=== PATIENT | male | born 1945 | race Caucasian/White ===

== ENCOUNTER 2022-02-12 09:45 | Outpatient (CLI) | payer OTHER, SELFPAY ==
--- NOTE | 2022-02-12 10:30 | CRLHL7_ITS ---
For Patients: As a result of the Cures Act, medical imaging exams and procedure reports are released immediately into your electronic medical record. You may view this report before your referring provider. If you have questions, please contact your health care provider. Dictation for this exam included within the brain MRI report from the same date. Dictated by Manuel Branch MD @ 02/12/2022 12:40:22 PM (Electronically Signed)
--- NOTE | 2022-02-12 10:30 | CRLHL7_ITS ---
For Patients: As a result of the Cures Act, medical imaging exams and procedure reports are released immediately into your electronic medical record. You may view this report before your referring provider. If you have questions, please contact your health care provider. Dictation for this exam included within the brain MRI report from the same date. Dictated by Manuel Branch MD @ 02/12/2022 12:40:47 PM (Electronically Signed)
--- NOTE | 2022-02-12 10:30 | CRLHL7_ITS ---
For Patients: As a result of the 21st Century Cures Act, medical imaging exams and procedure reports are released immediately into your electronic medical record. You may view this report before your referring provider. If you have questions, please contact your health care provider. INDICATION: Right-sided retinal hemorrhage. TECHNIQUE: Brain MRI with contrast. The following sequences were obtained: Sagittal T1 weighted sequence. DWI and ADC mapping sequences. Axial FLAIR, GRE T2* and KATERYNA T2 weighted sequences. Axial/coronal T1 weighted post-contrast sequences. Magnetic Resonance Angiography of the head and neck with and without contrast. The following sequences were obtained: 3D Time of Flight MRA sequence of the intracranial circulation. 3D Time of Flight and gadolinium bolus MRA sequences the neck with all measurements are based on NASCET criteria. Maximum Intensity Reconstructions are provided. 20 cc of Dotarem gadolinium based contrast agent was used. COMPARISON: None. 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 Significant associated susceptibility artifact from the aneurysm clip. There is right basifrontal encephalomalacia and gliosis, reflecting any combination of postoperative change and chronic infarct. No acute infarction. No mass or pathologic intracranial enhancement. Scattered FLAIR hyperintensities within the supratentorial white matter, typical for chronic microvascular ischemic change. No hydrocephalus or extra-axial collections. Partially empty sella. Parasellar structures and optic chiasm are normal. Posterior fossa is normal. Bilateral pseudophakia. No other orbital abnormalities. No calvarial or skull base marrow signal abnormality. No obstructive sinus disease. No extracranial soft tissue findings. MRA Head: Limited assessment for aneurysm recurrence in the anterior cerebral artery region given the amount of susceptibility artifact. Allowing for this, no visible recurrent aneurysm is identified. No proximal large vessel occlusion. The anterior cerebral arteries are patent. The middle cerebral arteries are patent. The posterior cerebral arteries are patent. The intradural vertebral arteries and basilar artery are patent. The intracranial internal carotid arteries are patent. No aneurysms elsewhere. MRA Neck: There is a 3 vessel configuration of the aortic arch. The brachiocephalic artery is patent. The proximal subclavian arteries are patent. The common carotid arteries are patent. The internal carotid arteries are patent. The cervical vertebral arteries are patent. No abnormal dilatation of the major cervical arteries. IMPRESSION: MRI Head: 1. No acute infarction or other acute intracranial pathology. 2. No mass or pathologic intracranial enhancement. 3. Bilateral pseudophakia. No other orbital abnormalities. 4. Postsurgical changes of right frontal craniotomy for aneurysm clipping with associated right anterior inferior frontal encephalomalacia/gliosis, reflecting any combination of postoperative change and chronic infarct. 5. Scattered chronic microvascular ischemic changes within the supratentorial white matter. MRA Head: 1. Limit assessment for recurrent anterior cerebral artery region aneurysm given the amount of susceptibility artifact. Allowing for this, no recurrent aneurysm is identified. No aneurysms elsewhere. 2. No proximal large vessel occlusion or flow-limiting stenosis involving the major intracranial arteries. MRA Neck: 1. No flow-limiting stenosis involving the major cervical arteries. No evidence of dissection. Dictated by Manuel Branch MD @ 02/12/2022 12:40:01 PM (Electronically Signed)
== END 2022-02-12 09:46 | disposition home or self-care (01) ==
LOC: MRI 09:46
PROVIDERS: PCP Family Medicine; Visit Provider Family Medicine
DX: H35.61 Retinal hemorrhage, right eye (principal); Z96.1 Presence of intraocular lens
CPT/HCPCS: 70544; 70549; 70553; A9575

== ENCOUNTER 2022-05-11 10:04 | Outpatient (CLI) | payer OTHER, SELFPAY ==
--- OUTSIDE RECORDS SUMMARY | 2022-05-11 10:08 | XMS_ITS | Encounter Summary ---
:1945 Author Care Team Providers Name Role Phone Edmund Gar MD Primary Care Provider [phone] Reason for Visit None recorded. Assessment and Plan 1. Lower urinary tract symptoms due to benign prostatic hypertrophy - Status post UroLift in [place] in 2016. Prostate measures about 80 to 90 g on my exam and has residual lateral lobe hyperplasia with a small median lobe. - Discussed TURP, medical mgmt - Continue tamsulosin - Will start finasteride 5 mg daily; dis cussed common side effects ? finasteride 5 mg tablet 2. Blood in urine - Cystoscopy today demonstrates a large , friable and hypervascular prostate that is probably the source of his intermittent hematuria. Otherwise unremarkable exam. He has had 2 [address] scans including a PET scan and 2020 that were negative for any stones or renal masses. 3. Overactive bladder - Symptoms consistent with overactive b ladder in the setting of type 2 diabetes 4. Nocturia - Voiding diary shows nocturnal polyuri a. I recommended that he continue with p.m. fluid restriction and compression socks during the day. I recommended he discuss with primary care physician starting Lasix in the midday to hopefully help with diuresis during the afternoon, rather than at nig httime. If he fails this, may need to consider formal sleep study to evaluate for sleep apnea. Discussion Note: None recorded.Patient educational handouts: No information available. Plan of Care Reminders Provider Appointments Return to Office on or around 03/23/2023 Tam Maria MD Lab None recorded. ? ? Referral None recorded. ? ? Procedures None recorded. ? ? Surgeries None recorded. ? ? Imaging None recorded. ? ? Medications Name Start Date ? ? amlodipine 5 mg tablet ? TAKE 1 TABLET BY MOUTH EVERY DAY atorvastatin 20 mg tablet ? TAKE 1 TABLET BY MOUTH EVERY EVENING. chlorthalidone 25 mg tablet ? TAKE 1 TABLET BY MOUTH EVERY DAY chlorthalidone 50 mg tablet ? TAKE 1 TABLET BY MOUTH EVERY DAY cholecalciferol (vitamin D3) ? ferrous sulfate ? finasteride 5 mg tablet ? TAKE 1 TABLET BY MOUTH EVERY DAY gabapentin 300 mg capsule ? TAKE 1 CAPSULE BY MOUTH TWICE A DAY glimepiride 2 mg tablet ? TAKE 1 TABLET BY MOUTH EVERY DAY metformin ER 500 mg tablet,extended release 24 hr ? TAKE 2 TABLETS BY MOUTH TWICE DAILY. tamsulosin 0.4 mg capsule ? TAKE 1 CAPSULE BY MOUTH EVERY DAY valsartan 320 mg tablet ? TAKE 1 TABLET BY MOUTH DAILY. Vitamin B12 ? Medications Administered None recorded. Vitals None recorded. Results Lab Results None recorded. Allergies Code Code System Name Reaction Severity Onset NKDA ? ? ? Problems None recorded. Procedures Date Name Performed by ? ? Cataract Surgery Information not avai lable ? Procedure on Knee Information not avai lable ? Prostate Surgery Information not avai lable ? Cholecystectomy Information not avai lable ? Procedure on Spine Information not avai lable Vaccine List None recorded. Social History Tobacco Smoking Status Never Smoker What was the date of your most recent tobacco screening? Family History Relation Problem Onset Age of Age Notes Father Squamous cell carcinoma (No Information) N/A (No Notes) Father Family history of cardiac (No Information) N/A (No Notes) disorder Functional Status Unknown. Past Encounters 03/23/2022 Lower Urinary Tract Symptoms Due to Javy gn Prostatic Hypertrophy; Blood in Urine; Overactive Bladder; Nocturia Chace Maria MD: [address] [facility], [address] [phone], Ph. 03/11/2022 Urinary Tract Infectious Disease; Lower Urinary Tract Symptoms Due to Benign Prostatic Hypertrophy; Blood in Urine; Overactive Bladder; Nocturia Chace Maria MD: [address] [facility], [address] [address], Ph. 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 He has a history of well-controlled [id number] type 2 diabetes, using metformin and glimepiride. He saw a urologist in [place] in 2017, but I do not have the records. He underwent UroLift procedure with the indication of nocturia and did not see improvement. He denies long-term issues with weak stream but does have some difficulty emptying his bladder at nighttime. His force of stream is good at this time. He voids about every 2-3 hours during the day and has nocturia x5. He wakes up because of a sense of urgency or full kimberley dder. He is also had episodes of gross hematuria and dysuria over the past 2 years. He had 1 culturein November 2020 reviewed from outside records that showed low colony count of staph. He had another culture in December 2021 that was negative, but did improve with Keflex (reviewed recent emergency room notesfrom 12/26/2021 with MINOO Means). I reviewed outside CT reports including a PET scan from 03/27/[address] abdomen and pelvis with contrast from 11/24/2020 that were negative for any upper tract abnormalities or stones. His most recent PSA was 2.56 on 12/06/2020. Urinalysis today is totally negative. Postvoid residual 35 mL. AUA symptom score 18, bother 5.</div><div>
</div><div>03/23/22: He follows up today to review his voiding diary, which shows typical nighttime voided volumes of 30 to 40 ounces with daytime volumes of 46 to 63 ounces. Nocturia x3- 4. Cystoscopy last visit showed lateral lobe hyperplasia with volcano-like protrusion into the bladder with a small median lobe. Prostate was hypervascular and easily bled with instrumentation. Currently he practices p.m. fluid restriction and wears compression socks during the day, which he takes off at nighttime.</div> Review of Systems None recorded. Physical Exam ? Notes: <div>General: No acute distr ess, well developed/well nourished
Resp: respirations non labored, no audible wheeze
MSK: no gross deformities
Neuro: moving all extremities, grossly non focal
Psych: normal mood and affect, no c onfusion that recommended ED for</div>
--- OUTSIDE RECORDS SUMMARY | 2022-05-11 10:08 | XMS_ITS | Encounter Summary ---
:1945 Author Organization [facility] Address [address] [place] [address] Care Team Providers Name Role Phone Edmund Gar MD Primary Care Provider Reason for Visit Reason Comments Hematuria Dysuria Encounter Details Date Type Department Care Team Description 12/26/2021 Emergency [facility] [place] with hematuria, site [address] [facility]. [address] [place] [address] [id number] Social History Tobacco Use Types Packs/Day Years Used Date Smoking Tobacco: Never Assessed Sex Assigned at Date Recorded Not on file documented as of this encounter Last Filed Vital Signs Vital Sign Reading Time Taken Comments Blood Pressure 157/82 12/26/2021 8:05 PM CDT Pulse 84 12/26/2021 8:05 PM CDT Temperature 36.6 ??C (97.8 ??F) 12/26/2021 8:05 PM CDT Respiratory Rate 16 12/26/2021 8:05 PM CDT Oxygen Saturation 98% 12/26/2021 8:05 PM CDT Inhaled Oxygen Concentration - - Weight - - Height - - Body Mass Index - - documented in this encounter Discharge Instructions Discharge InstructionsStKaris smith PA-C - 12/26/2021 10:03 PM CDT Discharge Instructions Urinary Tract Infection You or your child have been diagnosed with a urinary tract infection, or UTI. The urinary tract includes the kidneys (which make urine/pee), ureters (the tubes that carry urine/pee from the kidneys to the bladder), the bladder (which stores urine/pee), and urethra (the tube that carries urine/pee out of the bladder). Urinary tract infections occur when bacteria travel up the urethra into the bladder (bladder infection) and, in some cases, from there into the kidneys (kidney infection). Generally, every Emergency Department visit should have a follow-up clinic visit with either a primary or a specialty clinic/provider. Please follow-up as instructed by your emergency provider today. Return to the Emergency Department if: You or your child have severe back pain. You or your child are vomiting (throwing up) so that you cannot take your medicine. You or your child have a new fever (had not previously had a fever) over 101??F. You or your child have confusion or are very weak, or feel very ill. Your child seems much more ill, will not wake up, will not respond right, or is crying for a long time and will not calm down. You or your child are showing signs of dehydration. These signs may include decreased urination (pee), dry mouth/gums/tongue, or decreased activity. Follow-up with your provider: Children under 24 months need to be seen by their regular provider within one week after a diagnosisof a UTI. It may be necessary to do some more tests to look at the child???s kidney or bladder. You should begin to feel better within 24 - 48 hours of starting your antibiotic; follow-up with your regular clinic/doctor/provider if this is not the case. Treatment: You will be treated with an antibiotic to kill the bacteria. We have to make an educated guess, based on what we know about common bacteria and antibiotics, as to which antibiotic will work for your infection. We will be correct most times but there will be some cases where the antibiotic chosen is not correct (see urine cultures below). Take a pain medication such as acetaminophen (Tylenol??) or ibuprofen (Advil??, Motrin??, Nuprin??). Phenazopyridine (Pyridium??, Uristat??) is a prescription medication that numbs the bladder to reduce the burning pain of some UTIs. The same medication is available in a non-prescription version (Azo-Standard??, Urodol??). This medication will change the color of the urine and tears (usually blue or o range). If you wear contacts, do not wear them while taking this medication as they may be stained by the medication. Urine Cultures: If indicated, a urine culture may have been performed today. This test generally takes 24-48 hours to complete so the results are not known at this time. The results can confirm that an infection is present but also determine which antibiotic is effective for the specific bacteria that is causing the infection. If your urine culture shows that the antibiotic you were given today will not work to treat your infection, we will attempt to contact you to make arrangements to change the antibiotic. If the culture confirms that the antibiotic is effective for your infection, you will not be contacted. Weoften recommend follow-up with your regular physician/provider on the culture results regardless of this process. Antibiotic Warning: If you have been placed on antibiotics - watch for signs of allergic reaction. These include rash, lip swelling, difficulty breathing, wheezing, and dizziness. If you develop any of these symptoms, stop the antibiotic immediately and go to an emergency room or urgent care for evaluation. Probiotics: If you have been given an antibiotic, you may want to also take a probiotic pill or eat yogurt with live cultures. Probiotics have good bacteria to help your intestines stay healthy. Studies have shown that probiotics help prevent diarrhea and other intestine problems (including C. diff infection) when you take antibiotics. You can buy these without a prescription in the pharmacy section of the store. If you were given a prescription for medicine here today, be sure to read all of the information (including the package insert) that comes with your prescription. This will include important information about the medicine, its side effects, and any warnings that you need to know about. The pharmacist who fills the prescription can provide more information and answer questions you may have about the medicine. If you have questions or concerns that the pharmacist cannot address, please call or return to the Emergency Department. Remember that you can always come back to the Emergency Department if you are not able to see your regular provider in the amount of time listed above, if you get any new symptoms, or if there is anything that worries you. documented in this encounter Medications at Time of Discharge Medication Sig Dispensed Refills Start Date End Date cephalexin (KEFLEX) 500 Take 1 Capsule (500 14 Capsule 0 01/02/2022 MG capsule mg) by mouth two times a day for 7 days. documented as of this encounter ED Notes Carol Ann Rubalcava RN - 12/26/2021 10:28 PM CDT This patient was assessed and discharged by the provider Karis Collier PA-C - 12/26/2021 9:41 PM CDT Chief Complaint: Urinary symptoms HPI: Andrea Gibson is a 76 y.o. male with a history of type II diabetes, hyperlipidemia, and hypertension who presents to the ED for evaluation of urinary symptoms. The patient reports onset of dysuria, hematuria with blood clots, and urinary frequency at 18:00 tonight. He denies any nausea, vomiting, diarrhea, abdominal pain, fevers, congestion, cough, sore throat, chest pain, shortness of breath, or new back pain. Patient had a UTI approximately one year ago that felt similar. No concern for STI. He usually receives care in [place], but is in town due to visiting his family. Review of Systems Constitutional: Negative for fever. HENT: Negative for congestion and sore throat. Respiratory: Negative for cough and shortness of breath. Cardiovascular: Negative for chest pain. Gastrointestinal: Negative for abdominal pain, diarrhea, nausea and vomiting. Genitourinary: Positive for dysuria, frequency and hematuria. Musculoskeletal: Negative for back pain (new). Skin: Negative for rash. All other systems reviewed and are negative. Allergies: No known medication allergies. Medications: Patient takes medications for his hypertension, hyperlipidemia, and T2DM however it is unsure which medications. Medical History: Patient reported Hypertension Hyperlipidemia Type II diabetes UTI Surgical History: Unable to obtain surgical history due to difficulties with Care Everywhere. Social History: The patient presents to the ED independently. He was in the [employer]. Vital Signs: Triage Vitals [12/26/212004] Temp 36.6 ??C (97.8 ??F) Temp src Oral Pulse 84 Resp 16 BP (!) 157/82 SpO2 98 % Physical Exam Constitutional: Pleasant. Cooperative. Eyes: Pupils equally round and reactive. HENT: Head is normal in appearance. Oropharynx is normal with moist mucus membranes. Cardiovascular: Regular rate and rhythm. Respiratory: Normal respiratory effort, lungs are clear bilaterally. GI: Abdomen is soft, non-tender, non-distended. No guarding, rebound, or rigidity. : No CVA tenderness to percussion. Skin: Normal, without rash. Neurologic: Cranial nerves grossly intact, normal cognition, no focal deficits. Alert and oriented x3. Psychiatric: Normal affect. Nursing notes and vital signs reviewed. Laboratory: Results for orders placed or performed during the hospital encounter of 12/26/21 UA Conditional UC: Clean Catch Specimen: Clean Catch; Urine Result Value Ref Range Urine Culture Comment Urinalysis results meet criteria for reflex, culture performed. Urine Color Yellow Straw-Yellow Urine Clarity Cloudy (A) Clear Specific [place], Urine 1.024 1.005 - 1.030 PH Urine 6.0 5.0 - 8.0 Protein, Urine Qual (mg/dL) 30 (A) Negative Glucose Urine Qual (mg/dL) 50 (A) Negative Ketones, Urine (mg/dL) Trace (A) Negative Urobilinogen, Urine (EU/dL) 2.0 (A) <2.0 Bilirubin Urine Negative Negative Blood, Urine Large (A) Neg/Trace Nitrite Urine Negative Negative Leukocyte Est. Large (A) Negative Red Blood Cells >180 (H) 0 - 3 /HPF White Blood Cells >180 (H) 0 - 5 /HPF Bacteria Few (A) None Seen /HPF Urine Source Clean Catch ED Course: Reviewed: I reviewed the patient's past medical history, previous medical charts and nursing notes. Assessments / Reassessments: 21:58 I performed initial history and physical exam of the patient. Consultations: None. Interventions: All Medication Administration through 12/26/2021 2246 None Disposition: Discharged. Following our examination and treatment, any identified emergency medical condition has resolved. Patient is stable for discharge and may pursue follow-up care as recommended. Medications Prescribed this Visit Disp Refills Start End cephalexin (KEFLEX) 500 MG capsule 14 Capsule 0 12/26/2021 01/02/2022 Take 1 Capsule (500 mg) by mouth two times a day for 7 days. Oral Last EC Vitals: Temp: 36.6 ??C (97.8 ??F) (12/26 2004) Temp src: Oral (12/26 2004) Pulse: 84 (12/26 2004) Resp: 16 (12/26 2004) BP: 157/82 (12/26 2004) SpO2: 98 % (12/26 2004) Impression and Plan: Andrea Gibson is a 76 y.o. male ith a history of type II diabetes, hyperlipidemia, and hypertension who presents to the ED for evaluation of urinary symptoms as detailed above. Urinalysis shows results consistent with UTI. There has been no fever, back/flank pain or significant abdominal pain and there is no clinical evidence or concern for pyelonephritis or intraabdominal pathology. The patient is appropriate for outpatient management at this time and will be started on a course of antibiotics. Urineculture pending. Discharge instructions were reviewed; the patient will return for reevaluation of increasing pain, vomiting, fever, or inability to tolerate the oral antibiotic. Follow up with primary physician is indicated if not improving in 2-3 days. The patient expressed understanding and agreement with this plan and was discharged home. Diagnosis: Final diagnoses: [N39.0, R31.9] Urinary tract infection with hematuria, site unspecified [facility] I, Caryn Larkin, am serving as a scribe at 9:41 PM to document services personally performed by Karis Collier PA-C, based on my observations and the provider's statements to me. 12/26/2021 [facility] Portions of this medical record were completed by a scribe. UPON MY REVIEW AND AUTHENTICATION BY ELECTRONIC SIGNATURE, this confirms (a) I performed the applicable clinical services, and (b) the recordis accurate. Karis Collier PA-C 12/26/21 2247 documented in this encounter Plan of Treatment Not on filedocumented as of this encounter Procedures Procedure Name Priority Date/Time Associated Diagnosis Comme nts URINE CULTURE STAT 12/26/2021 8:15 PM Results for this CDT procedure are i n the results section. UA CONDITIONAL UC STAT 12/26/2021 8:15 PM Resu lts for this CDT procedure are i n the results section. documented in this encounter Results Urine Culture (12/26/2021 8:15 PM CDT) [facility] Method Time Signature Urine Culture No Growth 12/27/2021 [facility] After 1 Day 8:19 PM CDT HOSPITAL Specimen Anatomical Collection Method Collection Time Receive d Time (Source) Location / / Volume Laterality Urine URINE SPECIMEN 12/26/2021 8:15 PM 022 8:54 COLLECTION, CLEAN CDT PM CDT CATCH / Unknown Sina Shepard MD LAB_1 Performing Organization Address City/State/[place] [address] (ABNORMAL) UA Conditional UC: Clean Catch (12/26/2021 8:15 PM CDT) [facility] Method Time Signature Urine Culture Urinalysis 12/26/2021 [facility] Comment results meet 9:01 PM CDT LABORATORY criteria for reflex, culture performed. Urine Color Yellow Straw-Yello 12/26/2021 [facility] w 9:01 PM CDT LABORATORY Urine Clarity Cloudy (A) Clear 12/26/2021 [facility] 9:01 PM CDT LABORATORY Specific 1.024 1.005 - 12/26/2021 [facility] Nazlin[place], 1.030 9:01 PM CDT LABORATORY Urine PH Urine 6.0 5.0 - 8.0 12/26/2021 [facility] 9:01 PM CDT LABORATORY Protein, 30 (A) Negative 12/26/2021 [facility] Urine Qual 9:01 PM CDT LABORATORY (mg/dL) Glucose Urine 50 (A) Negative 12/26/2021 [facility] Qual (mg/dL) 9:01 PM CDT LABORATORY Ketones, Trace (A) Negative 12/26/2021 [facility] Urine (mg/dL) 9:01 PM CDT LABORATORY Urobilinogen, 2.0 (A) <2.0 12/26/2021 [facility] Urine (EU/dL) 9:01 PM CDT LABORATORY Bilirubin Negative Negative 12/26/2021 [facility] Urine 9:01 PM CDT LABORATORY Blood, Urine Large (A) Neg/Trace 12/26/2021 [facility] 9:01 PM CDT LABORATORY Nitrite Urine Negative Negative 12/26/2021 [facility] 9:01 PM CDT LABORATORY Leukocyte Large (A) Negative 12/26/2021 [facility] Est. 9:01 PM CDT LABORATORY Red Blood >180 (H) 0 - 3 /HPF 12/26/2021 [facility] Cells 9:01 PM CDT LABORATORY White Blood >180 (H) 0 - 5 /HPF 12/26/2021 [facility] Cells 9:01 PM CDT LABORATORY Bacteria Few (A) None Seen 12/26/2021 [facility] /HPF 9:01 PM CDT LABORATORY Urine Source Clean Catch 12/26/2021 [facility] 9:01 PM CDT LABORATORY Specimen Anatomical Collection Method Collection Time Receive d Time (Source) Location / / Volume Laterality Urine URINE SPECIMEN 12/26/2021 8:15 PM 022 8:20 COLLECTION, CLEAN CDT PM CDT CATCH / Unknown Narrative [facility] - 12/26/2021 9:01 P M CDT Ascorbic acid detected in this urine bernardo ple, which may interfere with Glucose, Blood and Nitrite measurements. Sina Shepard MD LAB_1 Performing Organization Address City/State/ZIP Code Phon e Number [facility] [address] [place] [address] documented in this encounter Visit Diagnoses Diagnosis Urinary tract infection with hematuria, site unspecified Triage Assessment Note - Curt Plasencia RN - 12/26/2021 8:02 PM CDT Andrea arrives by self for evaluatiton of hematuria, dysuria, and frequency which started about 1830 tonight. He states this is similar to a UTI he had last year about this time. Pain only when urinating. documented in this encounter Care Teams Substation Technician Relationship Specialty Start Date End Date Edmund Gar MD PCP - General Family Practice 12/26/[address] [place] [address] documented as of this encounter
--- OUTSIDE RECORDS SUMMARY | 2022-05-11 10:08 | XMS_ITS | Clinical Summary ---
:1945 Author Organization [facility] [place] [address] Care Team Providers Name Role Phone Edmund Gar MD Primary Care Provider [phone] Allergies Not on File Medications Not on file Active Problems Not on file Social History Tobacco Use Types Packs/Day Years Used Date Never Assessed Sex Assigned at Date Recorded Not on file Plan of Treatment Health Maintenance Due Date Last Done Comments COVID-19 vaccine series (#1) 1945 Tdap 1958 Depression screening for age 12+ 1959 BMI (ht and wt on same day) for age 18+ 1965 Hepatitis C screening for age 18-79 1965 Tetanus booster 1967 Colonoscopy through age 75 1992 Lipids for age 45-75 1992 Zoster (shingles) series for age 50+ (1 of 2) 1997 Medicare Wellness for age 65+ 2012 Pneumococcal series for age 65+ (1 - PCV) 2012 Influenza for age 65+ 03/12/2022 Results Not on filefrom Last 3 Months Insurance Payer Benefit Plan / Subscriber ID Effective Dates Phone Addre ss Type Group HUMANA GOLD MR HUMANA CHOICE [id number] 2020-Present [address] [address] [place] [address] Care Teams Minute Clerk Relationship Specialty Start Date End Date Edmund Gar MD PCP - General Family Practice 04/03/211999 [place] [address]
--- OUTSIDE RECORDS SUMMARY | 2022-05-11 10:08 | XMS_ITS | Clinical Summary ---
:1945 Author Organization [facility] Address [address] [place] [address] Care Team Providers Name Role Phone Edmund Gar MD Primary Care Provider Source Comments You are receiving this document as you are listed as the primary care provider,follow-up provider, or the patient has been referred to you for consultation.This is in compliance with the Medicare and Medicaid EHR Incentive Program,which states Providers who transition their patient to another setting of careor provider of care or refers their patient to another provider of care shouldprovide summarycare record for each transition of care or referral. [facility] Allergies No known active allergies Social History Tobacco Use Types Packs/Day Years Used Date Smoking Tobacco: Never Assessed Sex Assigned at Date Recorded Not on file Last Filed Vital Signs Vital Sign Reading Time Taken Comments Blood Pressure 157/82 12/26/2021 8:05 PM CDT Pulse 84 12/26/2021 8:05 PM CDT Temperature 36.6 ??C (97.8 ??F) 12/26/2021 8:05 PM CDT Respiratory Rate 16 12/26/2021 8:05 PM CDT Oxygen Saturation 98% 12/26/2021 8:05 PM CDT Inhaled Oxygen Concentration - - Weight - - Height - - Body Mass Index - - Plan of Treatment Health Maintenance Due Date Last Done Comments Colon Cancer Screening Plan Due 1945 Hep C Screening (Preventive 1945 Services) Medicare Welcome Visit 1945 COVID-19 Vaccine (#1) 1945 DTaP/Tdap/Td (1 - Tdap) 1966 Cholesterol 1982 Zoster/Shingles (1 of 2) 1997 Pneumococcal 65+ Yrs (1 - PCV) 2012 Influenza (#1) 2022 HepA Aged Out No longer eligib le based on patient's age to complete this topic HepB Aged Out No longer eligib le based on patient's age to complete this topic Hib Aged Out No longer eligib le based on patient's age to complete this topic IPV (Polio) Aged Out No longer eligib le based on patient's age to complete this topic MCV4 Aged Out No longer eligib le based on patient's age to complete this topic Insurance Payer Benefit Plan / Subscriber ID Effective Dates Phone Addre ss Type Group HUMANA HUMANA MEDICARE [id number] 2021-Present [phone] Medicare PPO Andrea Gibson Personal/Family Self 1945 [address] [place] [address] Andrea Gibson Personal/Family Self 1945 [address] [place] [address] Care Teams Public Address Systems Mechanic Relationship Specialty Start Date End Date Edmund Gar MD PCP - General Family Practice 12/26/[address]1999 [place] [address]
--- OUTSIDE RECORDS SUMMARY | 2022-05-11 10:08 | XMS_ITS ---
:1945 Author Care Team Providers Name Role Phone GABRIEL KARIMI MD Primary Care Provider [phone] Allergies Code Code System Name Reaction Severity Status Onset NKDA ? Medications Name Status Start Date Stop Date ? ? Accu-Chek Tuyet Plus Meter Completed ? 03/11 USE TO TEST BLOOD GLUCOSE Accu-Chek Tuyet Plus test strips Completed ? 03/11/2022 TEST ONCE DAILY Accu-Chek Softclix Lancets Completed ? 03/11 TEST ONCE DAILY amlodipine 10 mg tablet Completed ? 03/11/20 22 TAKE 1 TABLET BY MOUTH EVERY DAY amlodipine 5 mg tablet Active ? Not avail able TAKE 1 TABLET BY MOUTH EVERY DAY atorvastatin 20 mg tablet Active ? Not av ailable TAKE 1 TABLET BY MOUTH EVERY EVENING. cephalexin 500 mg capsule Completed ? 2021 chlorthalidone 25 mg tablet Active ? Not available TAKE 1 TABLET BY MOUTH EVERY DAY chlorthalidone 50 mg tablet Active ? Not available TAKE 1 TABLET BY MOUTH EVERY DAY cholecalciferol (vitamin D3) Active ? Not available ferrous sulfate Active ? Not available finasteride 5 mg tablet Active ? Not avai lable TAKE 1 TABLET BY MOUTH EVERY DAY gabapentin 300 mg capsule Active ? Not av ailable glimepiride 1 mg tablet Completed ? 03/11/20 22 TAKE 1 TABLET BY MOUTH EVERY DAY. glimepiride 2 mg tablet Active ? Not avai lable TAKE 1 TABLET BY MOUTH EVERY DAY metformin ER 500 mg tablet,extended release 24 hr Active ? Not available TAKE 2 TABLETS BY MOUTH TWICE DAILY. tamsulosin 0.4 mg capsule Active ? Not av ailable TAKE 1 CAPSULE BY MOUTH EVERY DAY tizanidine 4 mg tablet Completed ? 2 TAKE 1 TABLET BY MOUTH EVERY 8 HOURS NEEDED valsartan 320 mg tablet Active ? Not avai lable TAKE 1 TABLET BY MOUTH DAILY. Vitamin B12 Active ? Not available Problems None recorded. Procedures Date Name Performed by ? ? Cataract Surgery Information not avai lable ? Procedure on Knee Information not avai lable ? Prostate Surgery Information not avai lable ? Cholecystectomy Information not avai lable ? Procedure on Spine Information not avai lable Results Lab Results Date Name Specimen Result Interpretation Description Value Range Status Address ? 03/11/2022 Urinalysis, ? Color-Status Yellow ? ? [facility]: [address], [place] ? ? ? Clarity-Status Clear ? ? [facility]: [address], [place] ? ? ? Glucose-Status 100 ? ? [facility]: [address], [place] ? ? ? Ketones-Status 15 ? ? [facility]: [address], [place] ? ? ? pH-Status 5.5 ? ? [facility]: [address] [facility] [address], [place] Past Encounters 03/23/2022 Lower Urinary Tract Symptoms Due to Javy gn Prostatic Hypertrophy; Blood in Urine; Overactive Bladder; Nocturia Chace Maria MD: [address] [facility] [address], [place] ([place] [address], Ph. 03/11/2022 Urinary Tract Infectious Disease; Lower Urinary Tract Symptoms Due to Benign Prostatic Hypertrophy; Blood in Urine; Overactive Bladder; Nocturia Chace Maria MD: [address] [facility] [address] [address], [place] ([place] [address], Ph. Social History Tobacco Smoking Status Never Smoker Vaccine List None recorded. Plan of Care Reminders Provider Appointments None recorded. ? ? Lab None recorded. ? ? Referral None recorded. ? ? Procedures None recorded. ? ? Surgeries None recorded. ? ? Imaging None recorded. ? ? Vitals Height Weight BMI 6 ft 3 in 280 lbs 35 kg/m2
--- OUTSIDE RECORDS SUMMARY | 2022-05-11 10:08 | XMS_ITS | Encounter Summary ---
:1945 Author Care Team Providers Name Role Phone Edmund Gar MD Primary Care Provider [phone] Reason for Visit Nocturia; UTI Assessment and Plan 1. Urinary tract infectious disease ? urinalysis, dipstick 2. Lower urinary tract symptoms due to benign prostatic hypertrophy - Status post UroLift in [place] in 2017. Prostate measures about 80 to 90 g on my exam and has residual lateral lobe hyperplasia with a small median lobe. 3. Blood in urine - Cystoscopy today demonstrates a large , friable and hypervascular prostate that is probably the source of his intermittent hematuria. Otherwise unremarkable exam. He has had 2 [address] scans including a PET scan and 2020 that were negative for any stones or renal masses. 4. Overactive bladder - Symptoms consistent with overactive b ladder in the setting of type 2 diabetes 5. Nocturia - He will complete a 5-day voiding diar y for his nocturia and then we will provide recommendations. -Return to clinic to review voiding diar y Discussion Note: None recorded.Patient educational handouts: No information available. Plan of Care Reminders Provider Appointments Return to Office on or around Chace Dawsondaniel valentin 03/23/2023 [facility] Urinalysis, Dipstick 03/11/2022 [facility] Referral None recorded. ? ? Procedures None [...] B12 ? Medications Administered None recorded. Vitals Height Weight BMI 6 ft 3 in 280 lbs 35 kg/m2 Results Lab Results Date Name Specimen Result Interpretation Description Value Range Status Address ? 03/11/2022 Urinalysis, ? Color-Status Yellow ? ? [facility]: [address] [facility] [address], [place] ? ? ? Clarity-Status Clear ? ? [facility]: [address] [facility] [address], [place] ? ? ? Glucose-Status 100 ? ? [facility]: [address] [facility] [address], [place] ? ? ? Ketones-Status 15 ? ? [facility]: [address] [facility] [address], [place] ? ? ? pH-Status 5.5 ? ? [facility]: [address] [facility] [address], [place] Allergies Code Code System Name Reaction Severity [...] Notes) disorder Functional Status Unknown. Past Encounters 03/11/2022 Urinary Tract Infectious Disease; Lower Urinary Tract Symptoms Due to Benign Prostatic Hypertrophy; Blood in Urine; Overactive Bladder; Nocturia Chace Maria MD: [address] [facility], [address], [place] [address], Ph. 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 He has a history of well-controlled veo-kcbxpeg-gwymovnlp type 2 diabetes, using metformin and glimepiride. He saw a urologist in [place] in 2017, but I do not have [...] of a sense of urgency or full bladder. Heis also had episodes of gross hematuria and dysuria over the past 2 years. He had 1 culture in November 2020 reviewed from outside records that showed low colony count of staph. He had another culture in December 2021 that was negative, but did improve with Keflex (reviewed recent emergency room notes from 12/26/2021 with MINOO Means). I reviewed outside CT reports including a PET scan from 03/27/[address] abdomen and pelvis with contrast from 11/24/2020 that were negative for any upper tract abnormalities or stones. His most recent PSA was 2.56 on 12/06/2020. Urinalysis today is totally negative. Postvoid residual 35 mL. AUA symptom score 18, bother 5.</div> Review of Systems ? Comprehensive General Adult ROS Reported By: Patient Constitutional: Constitutional: no fever, no chills Eyes: Eyes: no dry eyes, no vision change, no irritation Endocrine: Endocrine: no fatigue, no in creased thirst Cardiovascular: Cardiovascular: no chest osvaldo n, no palpitations Integumentary: Skin: no rashes, no change i n skin color Respiratory: Respiratory: no wheezing, no cough, no shortness of breath Gastrointestinal: Gastrointestinal: no abdomin al pain, no nausea, no vomiting, no constipation, no GERD Musculoskeletal: Musculoskeletal: no neck osvaldo n, no back pain Neurologic: Neurologic: no tremor, no di zziness, no numbness, no headaches Genitourinary: Genitourinary: no incontinen ce, no difficulty urinating ENMT: Ears: no ear pain. Mouth/Thr oat: no sore throat Allergic/Immunologic: Allergy/Immunologic: no itch ing, no hives Hematologic/Lymphatic: Hematologic/Lymphatic no swo llen glands, no excessive bleeding Psychiatric: Psych: no hallucinations, (n ormal) sleep disturbances: mismatch of sleep / wake andrey edule with lifestyle needs Physical Exam ? Notes: <div>General Appearance: Wel l nourished. In no acute distress.
Lungs: Respirations nonlabored, no audible wheezing
Abdomen: No mass was palpated in the abdomen. Soft, non te nder.
Urinary System:
-Urethral meatus: Normal.
-Penis: Normal, no lesions.
-Scrotum: No lesions, no hydroceles, non tender.
-Testes: Descended bilaterally, symmetric, no masses or tenderness.
- Epididymis: Normal bilaterally.
-Vas Deferens / Spermatic Cord: Normal tia aterally, no masses or tenderness
-Prostate: Normal feeling symmetric pro state without firmness or nodules. Non tender. 80-90 gm prostate.
Neuro logical: Cognitive functioning was normal. No confusion or disorientation.
Psych: Normal mood and affect</div>
[2022-05-11 14:20] LABS: Chloride* 101 mmol/L (96-114)
[2022-05-11 14:21] LABS: Sodium* 138 mmol/L (135-149)
[2022-05-11 14:23] LABS: Blood Urea Nitrogen* 20 mg/dL (7-30); Calcium* 9.6 mg/dL (8.4-10.6); Carbon Dioxide* 29 mmol/L (20-32); Estimated Glomerular Filt Rate 79 ml/min; Glucose* 112 mg/dL (60-115)
== END 2022-05-11 10:05 | disposition home or self-care (01) ==
PROVIDERS: PCP Family Medicine; Visit Provider Family Medicine
DX: N40.0 Benign prostatic hyperplasia without lower urinary tract symptoms (principal); I10 Essential (primary) hypertension; E78.5 Hyperlipidemia, unspecified; Z12.5 Encounter for screening for malignant neoplasm of prostate
CPT/HCPCS: 80048; 84153

== ENCOUNTER 2022-12-21 13:35 | Outpatient (CLI) | payer OTHER, SELFPAY | END 2022-12-21 13:36 | disposition home or self-care (01) | PROVIDERS: PCP Family Medicine; Visit Provider Family Medicine | DX: I10 Essential (primary) hypertension (principal); E78.5 Hyperlipidemia, unspecified; E11.9 Type 2 diabetes mellitus without complications; E53.8 Deficiency of other specified B group vitamins; N40.0 Benign prostatic hyperplasia without lower urinary tract symptoms; D64.9 Anemia, unspecified | CPT/HCPCS: 80048; 80061; 84443; 84460; 85027 ==

== ENCOUNTER 2023-02-02 10:47 | Outpatient (CLI) | payer OTHER, SELFPAY | END 2023-02-02 10:48 | disposition home or self-care (01) | PROVIDERS: PCP Family Medicine; Visit Provider Family Medicine | DX: D64.9 Anemia, unspecified (principal) | CPT/HCPCS: 82728; 85025 ==

== ENCOUNTER 2023-02-08 13:04 | Emergency (ER) | payer OTHER, SELFPAY ==
[2023-02-08 13:16] VITALS: BP 113/61; PULSE 86; RESP 16; TEMP 36.4; O2SAT 98; BMI 35.0
--- NOTE | 2023-02-08 13:36 | CRLHL7_ITS ---
For Patients: As a result of the Century Cures Act, medical imaging exams and procedure reports are released immediately into your electronic medical record. You may view this report before your referring provider. If you have questions, please contact your health care provider. INDICATION: Leg pain and swelling. TECHNIQUE: Ultrasound venous duplex lower left extremity. Compression venous exam was performed using underwood-scale, color Doppler, and spectral Doppler analysis. COMPARISON: None. FINDINGS: Deep veins: Sonographic imaging demonstrates the left common femoral, deep femoral, superficial femoral, popliteal, posterior tibial and the contralateral right common femoral veins to be fully compressible with normal color Doppler blood flow. Superficial veins: Greater saphenous vein is fully compressible. No popliteal cyst. Complex solid appearing masslike structure in the left calf with peripheral vascularity measuring 12.8 x 4.7 x 4.8 centimeters. IMPRESSION: No DVT in the left lower extremity. Complex solid appearing masslike structure in the left calf with peripheral vascularity measuring up to 12.8 centimeters may represent malignancy or other musculoskeletal injury. Consider further evaluation with CT or MRI of the lower extremity. Dictated by Ramesh Figueredo MD @ 02/08/2023 4:30:00 PM (Electronically Signed)
--- NOTE | 2023-02-08 13:37 | ED_ITS ---
HPI - General Adult General Chief complaint: Lower Extremity Swelling Stated complaint: Swelling in left leg Time Seen by Provider: 02/08/23 13:31 Source: patient Mode of arrival: ambulatory Limitations: no limitations History of Present Illness HPI narrative: 77 year male coming in today complaining of left lower extremity pain going on for several days. Patient denies any trauma, bumping into anything or tripping. He states the pain is located in the lateral lower leg does not radiate. He describes leg has been quite swollen also. He denies any shortness of breath or cough. Patient does have a history of blood clots: He has had 2 retinal occlusions in the past. He is on aspirin for that. He does travel regularly drives 2 hours to work and then 2 hours back a couple of times per week. He denies any fevers or chills. No nausea or vomiting. No abdominal discomfort. He states he does have chronic anemia and that is followed up with primary care. Related Data Home Medications Medication Instructions Recorded Confirmed aspirin 325 mg tablet 325 mg PO QDAY 01/29/22 02/08/23 cholecalciferol (vitamin D3) 25 25 mcg PO QDAY 01/29/22 02/08/23 mcg (1,000 unit) capsule ferrous sulfate 325 mg (65 mg 325 mg PO QDAY 01/29/22 02/08/23 iron) tablet (iron) mecobalamin (vitamin B12) 1,000 1,000 mcg PO QDAY 01/29/22 02/08/23 mcg chewable tablet finasteride 5 mg tablet 5 mg PO QDAY 03/25/22 02/08/23 acetaminophen 500 mg tablet 1,000 mg PO TID PRN 09/08/22 02/08/23 chlorthalidone 25 mg tablet 25 mg PO QDAY 12/23/22 02/08/23 naproxen 250 mg tablet 250 mg PO QID 12/23/22 02/08/23 Previous Rx's Medication Instructions Recorded lancing device with lancets kit #100 ea 07/01/22 (Accu-Chek FastClix Lancing Device kit) lancets (Accu-Chek Softclix #100 ea 07/10/22 Lancets) amlodipine 5 mg tablet 5 mg PO QDAY #90 tabs 11/11/22 glimepiride 4 mg tablet 4 mg PO QAM #30 tabs 12/10/22 gabapentin 300 mg capsule 300 mg PO BID #180 caps 12/21/22 metformin 500 mg tablet,extended 1,000 mg (2 x 500 mg) PO BID #360 12/21/22 release 24 hr tabs atorvastatin 20 mg tablet 20 mg PO QPM #90 tabs 12/30/22 valsartan 320 mg tablet 320 mg PO QDAY #90 tabs 12/30/22 Blood Glucose Meter #1 ea 02/02/23 blood sugar diagnostic (Accu-Chek #100 ea 02/03/23 Guide test strips) blood-glucose meter (Accu-Chek #1 ea 02/03/23 Guide Glucose Meter) tamsulosin 0.4 mg capsule 0.4 mg PO QDAY #90 caps 02/03/23 Allergies Allergy/AdvReac Type Severity Reaction Status Date / Time cat dander Allergy Intermediate Unknown Verified 02/08/23 13:15 Review of Systems Status of ROS: Reports: 10 or more systems reviewed and unremarkable except as noted in History and below [facility] Medical History Normocytic anemia ?D64.9 - Anemia, unspecified (ICD-10) Reactive airways dysfunction syndrome ?J68.3 - Other acute and subacute respiratory conditions due to chemicals, gases, fumes and vapors (ICD-10) BPH (benign prostatic hyperplasia) ?N40.0 - Benign prostatic hyperplasia without lower urinary tract symptoms (ICD-10) Retinal hemorrhage of right eye ?H35.61 - Retinal hemorrhage, right eye (ICD-10) Type 2 diabetes mellitus (2009) ?E11.9 - Type 2 diabetes mellitus without complications (ICD-10) Tear of meniscus of right knee (04/19/02) ?S83.206A - Unspecified tear of unspecified meniscus, current injury, right knee, initial encounter (ICD-10) Rheumatoid arthritis ?M06.9 - Rheumatoid arthritis, unspecified (ICD-10) Osteoarthritis of both knees ?M17.0 - Bilateral primary osteoarthritis of knee (ICD-10) Lung nodule (2005) ?R91.1 - Solitary pulmonary nodule (ICD-10) Hypertension ?I10 - Essential (primary) hypertension (ICD-10) Hyperlipidemia ?E78.5 - Hyperlipidemia, unspecified (ICD-10) History of occlusion of branch retinal artery ?Z86.69 - Personal history of other diseases of the nervous system and sense organs (ICD-10) 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) ?Z86.69 - Personal history of other diseases of the nervous system and sense organs (ICD-10) Cobalamin deficiency ?E53.8 - Deficiency of other specified B group vitamins (ICD-10) Cerebral aneurysm (2008) ?I67.1 - Cerebral aneurysm, nonruptured (ICD-10) Allergic rhinitis ?J30.9 - Allergic rhinitis, unspecified (ICD-10) Surgical History Status post tonsillectomy and adenoidectomy (1953) ?Z90.89 - Acquired absence of other organs (ICD-10) Status post epidural steroid injection ?Z92.241 - Personal history of systemic steroid therapy (ICD-10) Status post debridement of bone spur (08/22/09) ?Z98.890 - Other specified postprocedural states (ICD-10) Status post cholecystectomy (1995) ?Z90.49 - Acquired absence of other specified parts of digestive tract (ICD- 10) Status post cervical spinal arthrodesis (02/12/17) ?Z98.1 - Arthrodesis status (ICD-10) History of surgery on left wrist ?Z98.890 - Other specified postprocedural states (ICD-10) History of prostate surgery (2017) ?Z98.890 - Other specified postprocedural states (ICD-10) History of bilateral cataract extraction (2014) ?Z98.41 - Cataract extraction status, right eye (ICD-10) ?Z98.42 - Cataract extraction status, left eye (ICD-10) 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 Alert and oriented. Answers questions appropriately. Mood and affect are appropriate. Thoughts are goal oriented and rational. No tangential or magical thinking noted. Patient speaks in full sentences without needing to catch his breath. HEENT: Normocephalic atraumatic. Pupils are equally round reactive to light. Extraocular muscles are intact. Conjunctivae are moist without any icterus noted. Moist mucous membranes. Cardiovascular: Heart is regular rate and rhythm S1 and S2 are present without any murmurs. Lungs: Clear to auscultation bilaterally no wheezes rhonchi or rales are appreciated. Patient takes deep breaths without any discomfort. Extremities: Bilateral lower extremities are without edema. Normal DP and PT pulses. He does have tenderness and swelling over the lateral lower leg on the left. It appears he has some bruising at the base of the hair follicles around the area that is swollen, appears to be from the stretching of the skin. Skin: Well perfused without any obvious rashes. Const: Vital Signs, click to edit/add: Vital Signs - 24 hr 02/08/23 13:16 Temperature 97.6 F Pulse Rate [Pulse Oximeter] 86 Respiratory Rate 16 Blood Pressure [Ri t Upper Arm] 113/61 Pulse Oximetry 98 Oxygen Delivery Me thod Room Air Course Course Hospital Course: His work was fairly unremarkable: His hemoglobin was slightly low at 11.1. His D-dimer and CRP were normal. Potassium a little low, AST and ALT minimally elevated. Ultrasound shows: No evidence of DVT however he does have a large mass present. CT scan was done to further evaluate this: Differential diagnoses for CT would include a mass, intramuscular hematoma or myonecrosis. Vital Signs Vital signs: Initial Vital Signs Temperature 97.6 F 02/08/23 13:16 Temperature Source Oral 02/08/23 13:16 Pulse Rate 86 02/08/23 13:16 Pulse Rhythm Regular 02/08/23 13:16 Pulse Strength 3+ Normal 02/08/23 13:16 Respiratory Rate 16 02/08/23 13:16 Blood Pressure 113/61 02/08/23 13:16 Blood Pressure Mean 78 02/08/23 13:16 Blood Pressure Position Sitting 02/08/23 13:16 Pulse Oximetry 98 02/08/23 13:16 Oxygen Delivery Method Room Air 02/08/23 13:16 Vital Signs Temperature 97.6 F 02/08/23 13:16 Pulse Rate 86 02/08/23 13:16 Respiratory Rate 16 02/08/23 13:16 Blood Pressure 113/61 02/08/23 13:16 Pulse Oximetry 98 02/08/23 13:16 Oxygen Delivery Method Room Air 02/08/23 13:16 Temperature 97.6 F 02/08/23 13:16 Pulse Rate 86 02/08/23 13:16 Respiratory Rate 16 02/08/23 13:16 Blood Pressure 113/61 02/08/23 13:16 Pulse Oximetry 98 02/08/23 13:16 Oxygen Delivery Method Room Air 02/08/23 13:16 Medical Decision Making MDM Narrative Medical decision making narrative: 77-year-old male with an ill-defined mass of the lower extremity. Recommend follow-up examination with Orthopedics for a biopsy and further imaging. Lab Data Lab results reviewed: Yes I reviewed the patient's lab results Labs: Lab Results 02/08/23 02/08/23 02/08/23 Range/Units 13:49 15:22 15:53 WBC 5.99 (4.50-11.00) K/uL RBC 4.04 L (4.30-5.90) m/uL Hgb 11.1 L (13.5-17.5) gm/dL Hct 35.0 L (37.0-53.0) % MCV 87 (80-100) fL MCH 28 (26-34) pg MCHC 32 (32-36) gm/dL RDW Coeff of Tammy 13.7 (11.5-15.5) % Plt Count 256 (140-440) K/uL Neut % (Auto) 72.7 H (42.0-72.0) % Lymph % (Auto) 17.4 L (20-44) % Charles % (Auto) 6.7 (0.0-11.0) % Eos % (Auto) 2.7 (0.0-7.0) % Baso % (Auto) 0.0 (0.0-3.0) % Neut # (Auto) 4.40 (1.7-7.0) K/uL Lymph # (Auto) 1.00 (0.90-2.90) K/uL Charles # (Auto) 0.40 (0.00-0.90) K/UL Eos # (Auto) 0.16 (0.00-0.50) K/uL Baso # (Auto) 0.00 (0.00-0.30) K/uL Abs Immat Gran (auto) 0.03 (0.00-0.30) K/uL Imm/Tot Granulo (auto) 0.5 % ESR 29 H (2-15) mm/hr D-Dimer Quant (PE/DVT) 0.39 (0.00-0.50) ug/ml Sodium 136 (135-149) mmol/L Potassium 3.4 L (3.6-5.1) mmol/L Chloride 103 (96-114) mmol/L Carbon Dioxide 26 (20-32) mmol/L BUN 14 (7-30) mg/dL Creatinine 0.9 (0.5-1.5) mg/dL Estimated Creat Clear 76.28 Estimated GFR 89 ml/min Glucose 160 H (60-115) mg/dL Calcium 9.0 (8.4-10.6) mg/dL Total Bilirubin 0.4 (0.1-1.5) mg/dL Direct Bilirubin 0.1 (0.0-0.5) mg/dL AST 51 H (12-35) U/L ALT 61 H (4-50) U/L Alkaline Phosphatase 65 (40-150) U/L C-Reactive Protein 0.8 (0.5-1.0) mg/dL NT-Pro-B Natriuret Pep 73 pg/mL Total Protein 6.7 (6.0-8.3) g/dL Albumin 3.9 (3.3-5.0) g/dL POC Creatinine 0.9 (0.6-1.3) mg/dl Imaging Data Venous US: Attestation: I have reviewed the pertinent imaging results. Radiologist's impression: Ultrasound venous duplex lower left extremity. Compression venous exam was performed using underwood-scale, color Doppler, and spectral Doppler analysis. COMPARISON: None. FINDINGS: Deep veins: Sonographic imaging demonstrates the left common femoral, deep femoral, superficial femoral, popliteal, posterior tibial and the contralateral right common femoral veins to be fully compressible with normal color Doppler blood flow. Superficial veins: Greater saphenous vein is fully compressible. No popliteal cyst. Complex solid appearing masslike structure in the left calf with peripheral vascularity measuring 12.8 x 4.7 x 4.8 centimeters. IMPRESSION: No DVT in the left lower extremity. Complex solid appearing masslike structure in the left calf with peripheral vascularity measuring up to 12.8 centimeters may represent malignancy or other musculoskeletal injury. Consider further evaluation with CT or MRI of the lower extremity. CT lower extremity: Attestation: I have reviewed the pertinent imaging results. Radiologist's impression: CT of the left tibia fibula with IV contrast. 142 cc IV Isovue-370. FINDINGS: Hypoattenuating tetanus ill-defined masslike enlargement of the anterior muscle compartment. Subcutaneous edema. Effacement of the adjacent anterior tibial artery. No acute fracture. IMPRESSION: Hypoattenuating heterogeneous ill-defined mass of the anterior muscle compartment near the palpable concern. Differential includes mass, muscle injury, myonecrosis or perhaps intramuscular hematoma. Discharge Plan Discharge Clinical Impression: Leg mass Patient Disposition: Home, Self-Care Condition: Stable Additional Instructions: You need to follow-up visit with Orthopedics for further imaging or biopsy of the area. Prescriptions: No Action gabapentin 300 mg capsule 300 mg PO BID Qty: 180 3RF metformin 500 mg tablet extended release 24 hr 1,000 mg PO BID Qty: 360 3RF cholecalciferol (vitamin D3) 25 mcg (1,000 unit) capsule 25 mcg PO QDAY mecobalamin (vitamin B12) 1,000 mcg tablet,chewable 1,000 mcg PO QDAY ferrous sulfate [iron] 325 mg (65 mg iron) tablet 325 mg PO QDAY aspirin 325 mg tablet 325 mg PO QDAY finasteride 5 mg tablet 5 mg PO QDAY acetaminophen 500 mg tablet 1,000 mg PO TID PRN Patient Comments: right hip pain (DME) lancing device with lancets [Accu-Chek FastClix Lancing Dev] Kit See Rx Instructions .Route Qty: 100 0RF Rx Instructions: Tests BID (DME) lancets [Accu-Chek Softclix Lancets] Misc See Rx Instructions .Route Qty: 100 5RF Rx Instructions: Tests daily amlodipine 5 mg tablet 5 mg PO QDAY Qty: 90 1RF glimepiride 4 mg tablet 4 mg PO QAM Qty: 30 0RF Rx Instructions: administer with breakfast chlorthalidone 25 mg tablet 25 mg PO QDAY naproxen 250 mg tablet 250 mg PO QID atorvastatin 20 mg tablet 20 mg PO QPM Qty: 90 1RF valsartan 320 mg tablet 320 mg PO QDAY Qty: 90 1RF (DME) Blood Glucose Meter Misc See Rx Instructions .Route Qty: 1 0RF Rx Instructions: Use to check blood glucose one time daily (DME) blood-glucose meter [Accu-Chek Guide Glucose Meter] Misc See Rx Instructions .Route Qty: 1 0RF Rx Instructions: As directed (DME) Accu-Chek Guide test strips Strip See Rx Instructions .Route Qty: 100 3RF Rx Instructions: As directed tamsulosin 0.4 mg capsule 0.4 mg PO QDAY Qty: 90 3RF Follow Up/Referrals: Edmund Gar MD [Primary Care Provider] - Stand Alone Forms: MyHealth Info Instructions
[2023-02-08 13:59] LABS: Eosinophils Absolute Auto 0.16 K/uL (0.00-0.50); Eosinophils Percent Auto 2.7 % (0.0-7.0); Hemoglobin* 11.1 gm/dL (13.5-17.5); Immature Granulocytes Abs Auto 0.03 K/uL (0.00-0.30); Immature Granulocytes Pct Auto 0.5 %; Lymphocytes Percent Auto 17.4 % (20-44); Mean Corpuscular HGB Conc 32 gm/dL (32-36); Mean Corpuscular Hemoglobin 28 pg (26-34); Mean Corpuscular Volume 87 fL (80-100); Monocytes Percent Auto 6.7 % (0.0-11.0); Neutrophils Percent Auto 72.7 % (42.0-72.0); Platelet Count* 256 K/uL (140-440); RDW Coefficient of Variation % 13.7 % (11.5-15.5); Red Blood Count 4.04 m/uL (4.30-5.90); White Blood Count* 5.99 K/uL (4.50-11.00)
[2023-02-08 14:01] LABS: Slide Review Reflex No
--- NOTE | 2023-02-08 14:27 | PC.NURSE ---
Patient up to bathroom. Ambulates independently.
[2023-02-08 14:28] LABS: C Reactive Protein* 0.8 mg/dL (0.5-1.0)
[2023-02-08 14:30] LABS: D Dimer Quantitative* 0.39 ug/ml (0.00-0.50)
[2023-02-08 14:35] LABS: Erythrocyte SedimentationRate* 29 mm/hr (2-15)
[2023-02-08 14:42] LABS: NT Pro B Type NatriureticPept* 73 pg/mL
--- NOTE | 2023-02-08 14:59 | CRLHL7_ITS ---
For Patients: As a result of the Century Cures Act, medical imaging exams and procedure reports are released immediately into your electronic medical record. You may view this report before your referring provider. If you have questions, please contact your health care provider. INDICATION: Mass seen on ultrasound done earlier today. COMPARISON: Same day ultrasound. TECHNIQUE: CT of the left tibia fibula with IV contrast. 142 cc IV Isovue-370. FINDINGS: Hypoattenuating tetanus ill-defined masslike enlargement of the anterior muscle compartment. Subcutaneous edema. Effacement of the adjacent anterior tibial artery. No acute fracture. IMPRESSION: Hypoattenuating heterogeneous ill-defined mass of the anterior muscle compartment near the palpable concern. Differential includes mass, muscle injury, myonecrosis or perhaps intramuscular hematoma. Findings discussed with Dr. Sheridan at 4:30 PM on 02/08/23. Please note that all CT scans at this facility use dose modulation, iterative reconstruction, and/or weight-based dosing when appropriate to reduce radiation dose to as low as reasonably achievable. Dictated by Edmund Reeder MD @ 02/08/2023 4:37:09 PM (Electronically Signed)
[2023-02-08 15:44] LABS: Creatinine, Point-of-Care* 0.9 mg/dl (0.6-1.3)
[2023-02-08 16:05] LABS: Albumin* 3.9 g/dL (3.3-5.0); Chloride* 103 mmol/L (96-114); Potassium* 3.4 mmol/L (3.6-5.1); Sodium* 136 mmol/L (135-149)
[2023-02-08 16:07] LABS: Creatinine* 0.9 mg/dL (0.5-1.5); Est. Creatinine Clearance* 76.28; Estimated Glomerular Filt Rate 89 ml/min
[2023-02-08 16:08] LABS: Alanine Aminotransferase* 61 U/L (4-50); Alkaline Phosphatase* 65 U/L (40-150); Aspartate Amino Transferase* 51 U/L (12-35); Bilirubin Direct* 0.1 mg/dL (0.0-0.5); Bilirubin Total* 0.4 mg/dL (0.1-1.5); Blood Urea Nitrogen* 14 mg/dL (7-30); Carbon Dioxide* 26 mmol/L (20-32); Glucose* 160 mg/dL (60-115); Total Protein* 6.7 g/dL (6.0-8.3)
== END 2023-02-08 17:31 | disposition home or self-care (01) ==
PROVIDERS: Emergency Provider Family Medicine; PCP Family Medicine
DX: R22.42 Localized swelling, mass and lump, left lower limb (principal)
CPT/HCPCS: 36415; 73701; 80048; 80076; 82565; 83880; 85025; 85379; 85651; 86140; 93971; 99284; Q9967

== ENCOUNTER 2023-02-23 07:02 | Outpatient (CLI) | payer OTHER, SELFPAY ==
--- NOTE | 2023-02-23 07:15 | CRLHL7_ITS ---
For Patients: As a result of the Century Cures Act, medical imaging exams and procedure reports are released immediately into your electronic medical record. You may view this report before your referring provider. If you have questions, please contact your health care provider. HISTORY: Localized swelling, mass and lump. TECHNIQUE: Noncontrast and contrast enhanced MRI of the left lower leg. 15 mL of Dotarem intravenous gadolinium was administered. COMPARISON: CT 02/08/2023. Ultrasound 02/08/2023. FINDINGS: There is a heterogeneous mass present within the anterior lateral soft tissues of the left lower leg. This is present within the anterior compartment and likely associated with the extensor hallucis longus and/or extensor digitorum longus muscles. The mass measures approximately 5.2 x 5.6 cm transverse x 21 cm craniocaudad. The mass is isointense to muscle on the precontrast T1 weighted images. Following gadolinium administration, there is irregular enhancement about the periphery of the mass (e.g. axial T1 post shan fat-sat image #22 of series 15 for example). The mass extends from the proximal lower leg level to the junction of the middle and distal thirds of the lower leg. Differential considerations include sarcoma, myxoma, malignant peripheral nerve sheath tumor versus other mass. There is no deep posterior compartment or posterior compartment mass. There is some mass effect on the peroneal musculature. Subcutaneous edema is present. There is no left tibial or fibular fracture or pathologic marrow replacement process. The mass does abut the anterior cortex of the fibula. On the coronal STIR large [id number] images, there is a right-sided contralateral popliteal cyst. Subcutaneous edema is present on the right. IMPRESSION: 21 cm craniocaudad soft tissue mass within the anterior compartment of the left lower leg. Irregular peripheral enhancement about mass following gadolinium administration. 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 Considerations may include sarcoma, myxoma, malignant peripheral nerve sheath tumor versus other soft tissue tumor. Dictated by Phill Munguia MD @ 02/23/2023 9:18:38 AM (Electronically Signed)
== END 2023-02-23 07:03 | disposition home or self-care (01) ==
PROVIDERS: PCP Family Medicine; Visit Provider Orthopaedic Surgery
DX: R22.40 Localized swelling, mass and lump, unspecified lower limb (principal)
CPT/HCPCS: 73720; A9575

== ENCOUNTER 2023-03-01 09:21 | Outpatient (RCR) | payer OTHER, SELFPAY ==
--- NOTE | 2023-03-01 12:17 | PT.OPEX ---
Please review and sign the attached outpatient physical therapy evaluation completed on 03/01/23. Thank you. PT [place] Outpatient Eval PT [facility] Outpatient Eval Start: 02/26/23 11:14 Freq: Status: Active Protocol: Document 03/01/23 07:25 TLQ (Rec: 03/01/23 11:24 TLQ [id number]) E-signed By Sindy Schilling DPT Physical Therapy Outpatient Evaluation Insurance Information Recert Due Date 05/30/23 Insurance Name Medicare B,Other; See Comments Insurance Information/Comments [employer] Medical Diagnosis Low back pain, unspecified M54 .50 Other chronic pain G89.29 Treating Diagnosis Low back pain M54.5 Pain in thoracic spine M54.6 Stiffness M25.60 Muscle weakness M62.81 Referring MD Edmund Gar MD Subjective Subjective Has a long history of back pain. Currently pain is across his shoulder blades when walking a block. Has been to physically therapy to address this about 1 year ago. 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 At this time patient has suspected cancer in his LLE, going to [facility] tomorrow and on Wednesday of this week for evaluation and biopsy of his leg. Saw Dr. Barclay for his leg, does not think the bone is involved. Taking Naproxen and Tylenol to address LLE pain. Goes to [address] [place] [address] and completed aquatic workouts x1 day per week due to current work schedule, would like to get back to 3 days a week. Does not have access to workout facility when away for work. Patient reports he is hoping to lose some weight. 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 [employer] Precautions Therapy Limitations/Systems Review Not Limited Objective Range of Motion Cervical AROM: Flexion 55 degrees Ext 50 degrees, popping no pain Rot L 55 degrees, R 60 degrees SB 35 BL, popping no pain Trunk AROM: FF fingertips 3 from floor, LBP Ext 50% Rot 100%, pain BL SB fingertips 2 from joint line BL Strength Cervical strength: 5/5 Core/trunk strength: 4/5 flexion, 5/5 extension Periscapular strength: Depression 3+ BL Retraction 4+ BL Hip strength: flexion L 4-/5, R 4+/5 extension 4+/5 BL abduction 5/5 BL adduction 5/5 BL internal rotation L 4-, R 5 external rotation L 3+, R 4 Other/Pertinent Objective TTP: BL levator scapulae, T4 and T7 paraspinals, T7 SP, L2- 5 paraspinals on L Joint mobility: hypomobile thoracic spine, L3-5 Special tests: JORGE L NT due to time Quadrant test NT due to time Manual traction NT due to time Functional Test Performed & Score Isaiah: score 20% Assessment Assessment/Impression Andrea is a 77 year old male who presents to outpatient physical therapy to address chronic periscapular pain and low back pain. Periscapular pain aggravated with walking more than one block. Low back pain aggravated by forward trunk flexion and relieved with seated rest. Strength testing revealed weakness of periscapular muscles, core, and L hip flexors and rotators . Stiffness in cervical spine with lateral flexion, patient has history of C5-7 fusion. Special tests for lumbar spine not completed today due to time constraints, will assess as time allows at follow-up. Hypomobility of thoracic and lumbar spine with assessment of CPA's. Patient was instructed through initial home program consisting of flexibility interventions for lumbar spine and periscapular strengthening, all tolerated well at time of eval, he was provided with a printout of these exercises. Patient being evaluated at [facility] in [place], [place] later this week for possible soft tissue cancer in his LLE, will adjust POC as needed based on results. Based on the above examination findings the patient is expected to benefit from interventions to manual therapy, therapeutic exercise, therapeutic activity, and neuromuscular re-education to meet the goals as outlined below. Primary Functional Limitations walking, forward trunk flexion , washing dishes, core weakness, hip weakness, periscapular weakness Plan of Care Rehabilitation Potential Good Physical Therapy Goals In 4-5 visits: - Patient will report ability to walk 2 blocks prior to onset of periscapular pain. - Patient will assemble beds at work with no more than 5/10 LBP. In 10-12 visits: - Patient will report ability to walk 1/2 mile prior to onset of periscapular pain. - LBP will decrease to 3/10 at most in order for patient to tolerate washing dishes. - L hip flexion and external rotation strength will improve 4/5. - Patient will adhere to HEP to manage symptoms IND at home . Treatment Plan/Direct Interventions Electrical Stimulation,Gait Training,Joint Mobilization, Manual Therapy,Neuromuscular Re-ed,Self-Care/Home Management,Therapeutic Activities,Therapeutic Exercises Frequency/Duration 1x/week for 10-12 weeks Patient Will Be Discharged From Therapy Completion of LTG(s),Skills Plateau,Independent w/HEP, Independently Progressing Evaluation Billing Untimed Code Treatment Minutes 40 Complexity Low Certification Information Initial Certification Date 03/01/23 Ending Certification Date 05/30/23 Provider Signature Shows Agreement With POC & Medical Necessity Physician Signature & Date Requested Please Sign/Date Here Physician Comment/Change : Physician NPI Number #
== END 2023-05-31 14:26 | disposition home or self-care (01) ==
PROVIDERS: PCP Family Medicine; Visit Provider Family Medicine
DX: M54.50 Low back pain, unspecified (principal); G89.29 Other chronic pain; M54.6 Pain in thoracic spine; M25.60 Stiffness of unspecified joint, not elsewhere classified; M62.81 Muscle weakness (generalized); Z51.89 Encounter for other specified aftercare
CPT/HCPCS: 97110; 97161

== ENCOUNTER 2023-03-12 14:45 | Emergency (ER) | payer OTHER, SELFPAY ==
[2023-03-12 14:54] VITALS: BP 116/62; PULSE 81; RESP 18; TEMP 35.8; O2SAT 100; BMI 35.9
--- NOTE | 2023-03-12 15:30 | ED_ITS ---
HPI - General Adult General Chief complaint: Extremity Pain/Injury, Lower Stated complaint: Pain in R hip and knee Time Seen by Provider: 03/12/23 15:30 History of Present Illness HPI narrative: pt had mri at [place] today, unrelated to R hip and knee pain. c/o significant pain in R hip and knee. wednesday went to urgent care, was hoping to get steroid shot. primary dr. gar. tylenol, naproxen, gabapentin, lidocaine used for the pain. 77-year-old man presenting to the emergency department with complaint of right knee and right hip pain. He does acknowledge that has had a history of what sounds like a right greater trochanteric bursitis but it apparently it had been quiet for a while. 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 Anticipating initiating radiation. Notes a history of osteoarthritis particularly in the knees and has had a history of steroid injections. Hoping for the same at this point. Admits that he has been walking a lot in his 7 some hours of appointment at [facility] today. Was evaluated recently in the urgent care and suspected to have had a hip flexor strain. Pain increases with ambulation particularly in the knee. Indicates pain actually going from the hip to the knee or vice versa. All along the outside of the leg. Related Data Home Medications Medication Instructions Recorded Confirmed aspirin 325 mg tablet 325 mg PO QDAY 01/29/22 03/16/23 cholecalciferol (vitamin D3) 25 25 mcg PO QDAY 01/29/22 03/16/23 mcg (1,000 unit) capsule ferrous sulfate 325 mg (65 mg 325 mg PO QDAY 01/29/22 03/16/23 iron) tablet (iron) mecobalamin (vitamin B12) 1,000 1,000 mcg PO QDAY 01/29/22 03/16/23 mcg chewable tablet finasteride 5 mg tablet 5 mg PO QDAY 03/25/22 03/16/23 acetaminophen 500 mg tablet 1,000 mg PO TID PRN 09/08/22 03/16/23 chlorthalidone 25 mg tablet 25 mg PO QDAY 12/23/22 03/16/23 naproxen 250 mg tablet 250 mg PO QID 12/23/22 03/16/23 ascorbic acid (vitamin C) 1,000 mg 1 g PO QDAY 02/15/23 03/16/23 tablet (Vitamin C) gabapentin 300 mg capsule 300 mg PO TID 03/16/23 03/16/23 lidocaine 4 % topical patch 1 patch topical QDAY PRN 03/16/23 03/16/23 lidocaine HCl 4 % topical cream 1 applic topical QDAY 03/16/23 03/16/23 (Aspercreme (lidocaine HCl)) Previous Rx's Medication Instructions Recorded amlodipine 5 mg tablet 5 mg PO QDAY #90 tabs 11/11/22 glimepiride 4 mg tablet 4 mg PO QAM #30 tabs 12/10/22 metformin 500 mg tablet,extended 1,000 mg (2 x 500 mg) PO BID #360 12/21/22 release 24 hr tabs atorvastatin 20 mg tablet 20 mg PO QPM #90 tabs 12/30/22 valsartan 320 mg tablet 320 mg PO QDAY #90 tabs 12/30/22 blood sugar diagnostic (Accu-Chek #100 ea 02/03/23 Guide test strips) blood-glucose meter (Accu-Chek #1 ea 02/03/23 Guide Glucose Meter) tamsulosin 0.4 mg capsule 0.4 mg PO QDAY #90 caps 02/03/23 hydrocodone 5 mg-acetaminophen 325 1 - 2 tab PO Q4-6H PRN pain #18 03/12/23 mg tablet tabs Allergies Allergy/AdvReac Type Severity Reaction Status Date / Time cat dander Allergy Intermediate Unknown Verified 03/16/23 10:59 Review of Systems Status of ROS: Reports: 6 or more systems reviewed and unremarkable except as noted in History and below [facility] Medical History Normocytic anemia ?D64.9 - Anemia, unspecified (ICD-10) Reactive airways dysfunction syndrome ?J68.3 - Other acute and subacute respiratory conditions due to chemicals, gases, fumes and vapors (ICD-10) BPH (benign prostatic hyperplasia) ?N40.0 - Benign prostatic hyperplasia without lower urinary tract symptoms (ICD-10) Retinal hemorrhage of right eye ?H35.61 - Retinal hemorrhage, right eye (ICD-10) Type 2 diabetes mellitus (2009) ?E11.9 - Type 2 diabetes mellitus without complications (ICD-10) Tear of meniscus of right knee (04/19/02) ?S83.206A - Unspecified tear of unspecified meniscus, current injury, right knee, initial encounter (ICD-10) Rheumatoid arthritis ?M06.9 - Rheumatoid arthritis, unspecified (ICD-10) Osteoarthritis of both knees ?M17.0 - Bilateral primary osteoarthritis of knee (ICD-10) Lung nodule (2005) ?R91.1 - Solitary pulmonary nodule (ICD-10) Hypertension ?I10 - Essential (primary) hypertension (ICD-10) Hyperlipidemia ?E78.5 - Hyperlipidemia, unspecified (ICD-10) History of occlusion of branch retinal artery ?Z86.69 - Personal history of other diseases of the nervous system and sense organs (ICD-10) 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) ?Z86.69 - Personal history of other diseases of the nervous system and sense organs (ICD-10) Cobalamin deficiency ?E53.8 - Deficiency of other specified B group vitamins (ICD-10) Allergic rhinitis ?J30.9 - Allergic rhinitis, unspecified (ICD-10) Surgical History Cerebral aneurysm (2008) ?I67.1 - Cerebral aneurysm, nonruptured (ICD-10) Status post tonsillectomy and adenoidectomy (1953) ?Z90.89 - Acquired absence of other organs (ICD-10) Status post epidural steroid injection ?Z92.241 - Personal history of systemic steroid therapy (ICD-10) Status post debridement of bone spur (08/22/09) ?Z98.890 - Other specified postprocedural states (ICD-10) Status post cholecystectomy (1995) ?Z90.49 - Acquired absence of other specified parts of digestive tract (ICD- 10) Status post cervical spinal arthrodesis (02/12/17) ?Z98.1 - Arthrodesis status (ICD-10) History of surgery on left wrist ?Z98.890 - Other specified postprocedural states (ICD-10) History of prostate surgery (2017) ?Z98.890 - Other specified postprocedural states (ICD-10) History of bilateral cataract extraction (2014) ?Z98.41 - Cataract extraction status, right eye (ICD-10) ?Z98.42 - Cataract extraction status, left eye (ICD-10) Family History Father Stroke 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 Polite. Skin is warm and dry. Breathing easily. There is some bruising at the left lower leg in generalized swelling in the area of the sarcoma. Examining the right leg does not appear to increased pain with flexion internal rotation or external rotation of the thigh. He does have pain to palpation over the lower aspect of the greater trochanter. Gas in pain. He also has pain in the superior lateral knee consistent with insertion of the IT band system. Gasps to palpation of this upper outer knee area. I do not appreciate an effusion although admittedly the right knee is a little more full. No laxity to varus or valgus stressors or Rebecca's. No pain to anterior knee palpation. Crossing the right leg over the left definitely exacerbates pain in the outer hip Const: Vital Signs, click to edit/add: Vital Signs - 24 hr 03/12/23 14:54 Temperature 96.5 F L Pulse Rate [Pulse Oximeter] 81 Respiratory Rate 18 Blood Pressure [Ri ght Upper Arm] 116/62 Pulse Oximetry 100 Oxygen Delivery Me thod Room Air Documenting provider has reviewed patient's vital signs: yes Course Vital Signs Vital signs: Initial Vital Signs Temperature 96.5 F L 03/12/23 14:54 Temperature Source Temporal Artery Scan 03/12/23 14:54 Pulse Rate 81 03/12/23 14:54 Respiratory Rate 18 03/12/23 14:54 Blood Pressure 116/62 03/12/23 14:54 Blood Pressure Mean 80 03/12/23 14:54 Blood Pressure Position Supine 03/12/23 14:54 Pulse Oximetry 100 03/12/23 14:54 Oxygen Delivery Method Room Air 03/12/23 14:54 Vital Signs Temperature 96.5 F L 03/12/23 14:54 Pulse Rate 81 03/12/23 14:54 Respiratory Rate 18 03/12/23 14:54 Blood Pressure 116/62 03/12/23 14:54 Pulse Oximetry 100 03/12/23 14:54 Oxygen Delivery Method Room Air 03/12/23 14:54 Temperature 96.5 F L 03/12/23 14:54 Pulse Rate 81 03/12/23 14:54 Respiratory Rate 18 03/12/23 14:54 Blood Pressure 116/62 03/12/23 14:54 Pulse Oximetry 100 03/12/23 14:54 Oxygen Delivery Method Room Air 03/12/23 14:54 Medical Decision Making MDM Narrative Medical decision making narrative: I think it though tibial band and overuse/compensation is probably the reason for the pain in the right knee and hip. Osteoarthritis may be playing a role. Suspect more of an ITB band/greater trochanteric bursitis issue here. All imaging has been focused on the left side and so will do an x-ray of the right knee and right hip. Pending those results at this time. At rest does not appear to need any pain management. I did review x-rays of right knee and right hip. Can see mild osteoarthritic changes. I do appreciate some narrowing of the medial compartment in the right knee but do not appreciate the near ?[id number]? as described/anticipated. See patient discharge plan. Medical Records Medical records reviewed: Yes I reviewed the patient's medical records Discharge Plan Discharge Clinical Impression: Greater trochanteric bursitis, Iliotibial band syndrome, Knee pain Patient Disposition: Home, Self-Care Condition: Stable Additional Instructions: See handout particularly with instructions related to anti-inflammatories, icing and exercises/stretching. You can increase your gabapentin to 600 mg 3 times a day if you feel it is helpful; I am not sure that it will be quite is helpful with this kind of pain origin. Can continue with topical treatments that you have been doing. I do think icing is important as well as the stretches and trying to find ways to decrease stress on your right leg. I like those ice bags as discussed. I would follow-up as planned in clinic on Wednesday. Can give discuss next steps in treatment which may also include injections or physical therapy. Each tablet of [place] contains 325 mg of acetaminophen. Maximum singular dosing of acetaminophen is 1000 mg. Prescriptions: New hydrocodone-acetaminophen 5-325 mg tablet 1 - 2 tab PO Q4-6H PRN (Reason: pain) Qty: 18 0RF No Action metformin 500 mg tablet extended release 24 hr 1,000 mg PO BID Qty: 360 3RF ascorbic acid (vitamin C) [Vitamin C] 1,000 mg tablet 1 g PO QDAY cholecalciferol (vitamin D3) 25 mcg (1,000 unit) capsule 25 mcg PO QDAY mecobalamin (vitamin B12) 1,000 mcg tablet,chewable 1,000 mcg PO QDAY ferrous sulfate [iron] 325 mg (65 mg iron) tablet 325 mg PO QDAY aspirin 325 mg tablet 325 mg PO QDAY finasteride 5 mg tablet 5 mg PO QDAY acetaminophen 500 mg tablet 1,000 mg PO TID PRN Patient Comments: right hip pain gabapentin 300 mg capsule 300 mg PO TID lidocaine 4 % adhesive patch,medicated 1 patch topical QDAY PRN lidocaine HCl [Aspercreme (lidocaine HCl)] 4 % cream 1 applic topical QDAY amlodipine 5 mg tablet 5 mg PO QDAY Qty: 90 1RF glimepiride 4 mg tablet 4 mg PO QAM Qty: 30 0RF Rx Instructions: administer with breakfast chlorthalidone 25 mg tablet 25 mg PO QDAY naproxen 250 mg tablet 250 mg PO QID atorvastatin 20 mg tablet 20 mg PO QPM Qty: 90 1RF valsartan 320 mg tablet 320 mg PO QDAY Qty: 90 1RF (DME) blood-glucose meter [Accu-Chek Guide Glucose Meter] Misc See Rx Instructions .Route Qty: 1 0RF Rx Instructions: As directed (DME) Accu-Chek Guide test strips Strip See Rx Instructions .Route Qty: 100 3RF Rx Instructions: As directed tamsulosin 0.4 mg capsule 0.4 mg PO QDAY Qty: 90 3RF Follow Up/Referrals: Edmund Gar MD [Primary Care Provider] - Stand Alone Forms: [facility] Info Instructions
--- NOTE | 2023-03-12 15:42 | XR_ITS ---
Final Report Patient: DEVANTE MURILLO Facility:?[facility] Patient ID:?[id number] Site Patient ID:?[id number]. Site :?[id number] Study:?XRay Hip Right-03/12/2023 4:54:18 PM Ordering Physician:?DR. RAM Final Report: INDICATION: Hip pain. TECHNIQUE: Pelvis and right hip 3 views. COMPARISON: None. FINDINGS: Bones: Alignment is normal. No fractures or bone lesions. Joint spaces: Joint spaces are preserved. No significant degenerative changes. Soft tissues: Brachytherapy seeds. Hyperdense material in the urinary bladder, possibly contrast. IMPRESSION: No acute osseous abnormality. Dictated by Pj Storey MD @ 03/12/2023 6:02:19 PM (Electronic Signature)
--- NOTE | 2023-03-12 15:42 | XR_ITS ---
Final Report Patient: DEVANTE MURILLO Facility:?[facility] Patient ID:?[id number] Site Patient ID:?[id number]. Site :?[id number] Study:?XRay Extremity Right KNEE-03/12/2023 4:55:46 PM Ordering Physician:?DR. RAM Final Report: INDICATION: Pain. TECHNIQUE: Right knee 2 views. COMPARISON: None. FINDINGS: No acute fractures or malalignment. No joint effusion. Mild degenerative changes. Soft tissues are unremarkable. IMPRESSION: No acute osseous abnormality. Dictated by Pj Storey MD @ 03/12/2023 6:03:33 PM (Electronic Signature)
== END 2023-03-12 17:53 | disposition home or self-care (01) ==
PROVIDERS: Emergency Provider Family Medicine; PCP Family Medicine
DX: M70.61 Trochanteric bursitis, right hip (principal); M76.31 Iliotibial band syndrome, right leg
CPT/HCPCS: 73502; 73560; 99284

== ENCOUNTER 2023-04-12 09:30 | Outpatient (CLI) | payer OTHER, SELFPAY | END 2023-04-12 09:31 | disposition home or self-care (01) | PROVIDERS: PCP Family Medicine; Visit Provider Family Medicine | DX: Z01.818 Encounter for other preprocedural examination (principal); I10 Essential (primary) hypertension; E78.5 Hyperlipidemia, unspecified; E11.9 Type 2 diabetes mellitus without complications; M17.0 Bilateral primary osteoarthritis of knee | CPT/HCPCS: 80048; 82607; 82728; 85025 ==

== ENCOUNTER 2023-07-01 12:02 | Outpatient (CLI) | payer OTHER, SELFPAY | END 2023-07-01 12:03 | disposition home or self-care (01) | PROVIDERS: PCP Family Medicine; Visit Provider Family Medicine | DX: E11.9 Type 2 diabetes mellitus without complications (principal); E78.2 Mixed hyperlipidemia; I10 Essential (primary) hypertension; D64.9 Anemia, unspecified; M06.9 Rheumatoid arthritis, unspecified; R53.83 Other fatigue | CPT/HCPCS: 80048; 82728; 85025 ==

== ENCOUNTER 2023-09-26 06:38 | Emergency (ER) | payer OTHER, SELFPAY ==
[2023-09-26 06:52] VITALS: BP 153/78; PULSE 65; RESP 18; TEMP 36.7; O2SAT 97; BMI 31.2
--- NOTE | 2023-09-26 07:21 | ED_ITS ---
HPI - General Adult General Chief complaint: Diarrhea <Jocelyn Macedo MD - Last Filed: 09/28/23 23:58> Stated complaint: Diarrhea <Joceyln Macedo MD - Last Filed: 09/28/23 23:58> Time Seen by Provider: 09/26/23 06:40 <Jocelyn Macedo MD - Last Filed: 09/28/23 23:58> Source: patient and family <Jocelyn Macedo MD - Last Filed: 09/28/23 23:58> Mode of arrival: ambulatory <Jocelyn Macedo MD - Last Filed: 09/28/23 23:58> Limitations: no limitations <Jocelyn Macedo MD - Last Filed: 09/28/23 23:58> History of Present Illness HPI narrative: 78-year-old male presents the emergency department with persistent diarrhea. Patient reports 5 stools last night, watery, yellow with some elements of fecal material in them, nonbloody. Feels like he is getting weak and dehydrated again. Diarrhea has been present for the past 9 days. He has had an unfortunate few weeks medically speaking. 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 On September 14 he was taken back to the operating room for an infection in the leg, having originally had surgery in April. He had been given stool softeners and laxatives for several days and then on the he had a large bowel movement and has been having persistent diarrhea ever since despite no longer using the stool softeners. On the E began to feel dizzy and lightheaded while he was down at [place] for a follow-up appointment. He was taken to the emergency department where he was found to be dehydrated. It sounds like he had a low potassium and an elevated lactate at the time. His chlorthalidone was held. It does not look as though a C diff sample was collected. It looks like he had a rectal swab for VRE. He has been on multiple antibiotics in the last few weeks. He has no prior history of C diff. Stools are nonbloody. He had a very rich meal last night which his wonders if it may have made things worse. There is no pain. No vomiting. He has not had fever. He did try taking Imodium about a week ago, 2 tablets total with no significant resolution of his symptoms. Has not tried other measures as the opinion of the physicians when he was hospitalized overnight was fairly mixed regarding if this was safe or not. He completed his antibiotic course 3 days ago on the . Past medical history is most notable for the sarcoma. He also has type 2 diabetes, hypertension. He is immunosuppressed due to treatment for his rheumatoid arthritis. He has also recently found out that the cancers spreading any has a follow-up next week with his [facility] team. Recent surgical history and antibiotic use described above. Medications accurate with the exception of re cent cessation of chlorthalidone. ROS is notable for lightheadedness, diarrhea and otherwise negative as stated above. <Jocelyn Macedo MD - Last Filed: 09/28/23 23:58> Related Data Home medications: Home Medications Medication Instructions Recorded Confirmed cholecalciferol (vitamin D3) 25 25 mcg PO QDAY 01/29/22 09/26/23 mcg (1,000 unit) capsule mecobalamin (vitamin B12) 1,000 1,000 mcg PO QDAY 01/29/22 09/26/23 mcg chewable tablet finasteride 5 mg tablet 5 mg PO QDAY 03/25/22 09/26/23 acetaminophen 500 mg tablet 1,000 mg PO TID PRN 09/08/22 09/26/23 ascorbic acid (vitamin C) 1,000 mg 1 g PO QDAY 02/15/23 09/26/23 tablet (Vitamin C) blood sugar diagnostic (Accu-Chek 04/12/23 09/26/23 Guide test strips) lancets (Accu-Chek Softclix #100 ea 04/12/23 09/26/23 Lancets) B12 1,000 1 tab PO QDAY 06/01/23 09/26/23 mcg-methyltetrahydrofolate 680 mcg DFE-B6 1.5 mg chew tablet valsartan 160 mg tablet 160 mg PO QDAY 06/01/23 09/26/23 aspirin 325 mg tablet 325 mg PO QDAY 07/01/23 09/26/23 pembrolizumab IV Q3W 09/26/23 enoxaparin 40 mg/0.4 mL mg subcut 09/28/23 09/28/23 subcutaneous syringe Previous Rx's Medication Instructions Recorded metformin 500 mg tablet,extended 1,000 mg (2 x 500 mg) PO BID #360 12/21/22 release 24 hr tabs tamsulosin 0.4 mg capsule 0.4 mg PO QDAY #90 caps 02/03/23 blood-glucose meter (Accu-Chek #1 ea 03/30/23 Guide Glucose Meter) atorvastatin 20 mg tablet 20 mg PO QPM #90 tabs 04/13/23 chlorthalidone 25 mg tablet 25 mg PO QDAY #90 tabs 08/27/23 tramadol 50 mg tablet 50 mg PO Q6H PRN pain #30 tabs 09/06/23 <Jocelyn Macedo MD - Last Filed: 09/28/23 23:58> Allergies/adverse reactions: Allergies Allergy/AdvReac Type Severity Reaction Status Date / Time cat dander Allergy Intermediate Unknown Verified 09/28/23 09:47 <Jocelyn Macedo MD - Last Filed: 09/28/23 23:58> PFS PFS Medical History: Medical History (Updated 09/28/23 @ 21:02 by Edmund Gar MD) Health care directive on file ?Z78.9 - Other specified health status (ICD-10) Type 2 diabetes mellitus, without long-term current use of insulin ?E11.9 - Type 2 diabetes mellitus without complications (ICD-10) Mixed hyperlipidemia ?E78.2 - Mixed hyperlipidemia (ICD-10) Primary hypertension ?I10 - Essential (primary) hypertension (ICD-10) Sarcoma of left lower extremity ?C49.22 - Malignant neoplasm of connective and soft tissue of left lower limb, including hip (ICD-10) Normocytic anemia ?D64.9 - Anemia, unspecified (ICD-10) Reactive airways dysfunction syndrome ?J68.3 - Other acute and subacute respiratory conditions due to chemicals, gases, fumes and vapors (ICD-10) BPH (benign prostatic hyperplasia) ?N40.0 - Benign prostatic hyperplasia without lower urinary tract symptoms (ICD-10) Retinal hemorrhage of right eye ?H35.61 - Retinal hemorrhage, right eye (ICD-10) Tear of meniscus of right knee (04/19/02) ?S83.206A - Unspecified tear of unspecified meniscus, current injury, right knee, initial encounter (ICD-10) Rheumatoid arthritis ?M06.9 - Rheumatoid arthritis, unspecified (ICD-10) Osteoarthritis of both knees ?M17.0 - Bilateral primary osteoarthritis of knee (ICD-10) History of occlusion of branch retinal artery ?Z86.69 - Personal history of other diseases of the nervous system and sense organs (ICD-10) 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) ?Z86.69 - Personal history of other diseases of the nervous system and sense organs (ICD-10) Cobalamin deficiency ?E53.8 - Deficiency of other specified B group vitamins (ICD-10) Allergic rhinitis ?J30.9 - Allergic rhinitis, unspecified (ICD-10) <Jocelyn Macedo MD - Last Filed: 09/28/23 23:58> Surgical History: Surgical History Cerebral aneurysm (2008) ?I67.1 - Cerebral aneurysm, nonruptured (ICD-10) Status post tonsillectomy and adenoidectomy (1953) ?Z90.89 - Acquired absence of other organs (ICD-10) Status post epidural steroid injection ?Z92.241 - Personal history of systemic steroid therapy (ICD-10) Status post debridement of bone spur (08/22/09) ?Z98.890 - Other specified postprocedural states (ICD-10) Status post cholecystectomy (1995) ?Z90.49 - Acquired absence of other specified parts of digestive tract (ICD- 10) Status post cervical spinal arthrodesis (02/12/17) ?Z98.1 - Arthrodesis status (ICD-10) History of surgery on left wrist ?Z98.890 - Other specified postprocedural states (ICD-10) History of prostate surgery (2018) ?Z98.890 - Other specified postprocedural states (ICD-10) History of bilateral cataract extraction (2014) ?Z98.41 - Cataract extraction status, right eye (ICD-10) ?Z98.42 - Cataract extraction status, left eye (ICD-10) <Jocelyn Macedo MD - Last Filed: 09/28/23 23:58> Family History: Family History Father Stroke <Jocelyn Macedo MD - Last Filed: 09/28/23 23:58> Social History: 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: , 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, 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, 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 What is your current living situation?: I presently have a place to live In the past 12 months, utilities in danger of being shut off: no In past 12 months, lack of transportation kept you from medical appts, meetings, work, or getting things needed for daily living: no In the past 12 mos, have been you worried that your food would run out before you had money to buy more?: never true In the past 12 mos, the food you bought just didn't last and you didn't have money to buy more?: never true Smoking Status: Never smoker Do you use any of these nicotine containing products: None Second hand tobacco smoke exposure: No How often do you have a drink containing alcohol: 2-4 times a month AUDIT-C Alcohol total score: 2 Non-prescribed substance use: denies use How often does anyone, including family, friends and others, physically hurt you : never How often does anyone, including family, friends and others, insult or talk down to you: never How often does anyone, including family, friends and others, threaten you with harm: never How often does anyone, including family, friends and others, scream or curse at you: never Little interest or pleasure in doing things: not at all Feeling down, depressed, or hopeless: not at all <Jocelyn Macedo MD - Last Filed: 09/28/23 23:58> Exam Const: Vital Signs, click to edit/add: Vital Signs - 24 hr 09/26/23 06:52 Temperature 98.0 F Pulse Rate [Right Pulse Oximeter] 65 Respiratory Rate 18 Blood Pressure [Ri ght Upper Arm] 153/78 H Pulse Oximetry 97 Oxygen Delivery Me thod Room Air <Jocelyn Macedo MD - Last Filed: 09/28/23 23:58> Vital Signs, click to edit/add: Vital Signs - 24 hr 09/26/23 06:52 Temperature 98.0 F Pulse Rate [Right Pulse Oximeter] 65 Respiratory Rate 18 Blood Pressure [Ri ght Upper Arm] 153/78 H Pulse Oximetry 97 Oxygen Delivery Me thod Room Air <Jodie Penny MD - Last Filed: 09/26/23 11:12> Documenting provider has reviewed patient's vital signs: yes <Jocelyn Macedo MD - Last Filed: 09/28/23 23:58> Common normals: no apparent distress <Jocelyn Macedo MD - Last Filed: 09/28/23 23:58> General appearance: cooperative, comfortable and well kempt <Jocelyn Macedo MD - Last Filed: 09/28/23 23:58> HENMT: Common normals: normocephalic, moist oral mucous membranes and oropharynx normal <Jocelyn Macedo MD - Last Filed: 09/28/23 23:58> Head and scalp: normocephalic <Jocelyn Macedo MD - Last Filed: 09/28/23 23:58> Mouth: oral and palatal mucosa normal <Jocelyn Macedo MD - Last Filed: 09/28/23 23:58> Throat: posterior oropharynx normal <Jocelyn Macedo MD - Last Filed: 09/28/23 23:58> Eye: Common normals: conjunctivae normal <Jocelyn Macedo MD - Last Filed: 09/28/23 23:58> General eye: normal appearance of both eyes <Jocelyn Macedo MD - Last Filed: 09/28/23 23:58> Conjunctiva: conjunctiva(e) normal <Jocelyn Macedo MD - Last Filed: 09/28/23 23:58> Resp: Common normals: normal respiratory effort, no use of accessory muscles and clear to auscultation bilaterally <Jocelyn Macedo MD - Last Filed: 09/28/23 23:58> Effort & inspection: able to speak in complete sentences <Jocelyn Macedo MD - Last Filed: 09/28/23 23:58> Auscultation: clear to auscultation bilaterally <MD Maren Carvajal Last Filed: 09/28/23 23:58> Cardio: Common normals: regular rate, regular rhythm, S1 normal heart sound, S2 normal heart sound and no murmurs <Jocelyn Macedo MD - Last Filed: 09/28/23 23:58> Rate: regular rate <Jocelyn Macedo MD - Last Filed: 09/28/23 23:58> Rhythm: regular rhythm <Jocelyn Macedo MD - Last Filed: 09/28/23 23:58> Heart sounds: S1 normal and S2 normal <Jocelyn Macedo MD - Last Filed: 09/28/23 23:58> GI: Common normals: Normal to inspection, nondistended, normoactive bowel sounds present, soft to palpation, non-tender, no hepatosplenomegaly and no masses <Jocelyn Macedo MD - Last Filed: 09/28/23 23:58> Palpation: soft and no hepatosplenomegaly <Jocelyn Macedo MD - Last Filed: 09/28/23 23:58> Extremity: Other: Surgical leg is not examined, cam walker boot and specialized dressings as well as wound VAC are in place.. The right leg has just a trace amount of dependent appearing edema but normal capillary refill. <Jocelyn Macedo MD - Last Filed: 09/28/23 23:58> Neuro: Speech: speech normal <Jocelyn Macedo MD - Last Filed: 09/28/23 23:58> Motor exam: no movement abnormalities noted <Jocelyn Macedo MD - Last Filed: 09/28/23 23:58> Psych: Appearance: well kempt <Jocelyn Macedo MD - Last Filed: 09/28/23 23:58> Attitude: engaged <Jocelyn Macedo MD - Last Filed: 09/28/23 23:58> Activity/motor behavior: appropriate eye contact <Jocelyn Macedo MD - Last Filed: 09/28/23 23:58> Attention/concentration: attention grossly intact <Jocelyn Macedo MD - Last Filed: 09/28/23 23:58> Memory/cognition: memory grossly intact <Jocelyn Macedo MD - Last Filed: 09/28/23 23:58> Insight: insight good <Jocelyn Macedo MD - Last Filed: 09/28/23 23:58> Judgement: judgment good <Jocelyn Macedo MD - Last Filed: 09/28/23 23:58> Skin: Common normals: no rashes or lesions noted <Jocelyn Macedo MD - Last Filed: 09/28/23 23:58> General skin exam: no rashes or lesions noted <Jocelyn Macedo MD - Last Filed: 09/28/23 23:58> Course Course ED Course: Nine days of diarrhea with recent antibiotic use concerning for C diff or other bacterial superinfection. Differential diagnosis also includes viral gastroenteritis, side effects from medications, nutritional deficiencies, colitis, among others. Differential diagnosis also including dehydration, electrolyte abnormalities due to persistent diarrhea. Will plan to give 1 L of LR, obtain basic labs for lactate, electrolytes, CBC. CRP. Would like a stool sample for culture and also C diff assay. Will be handing over care to incoming day shift partner. No signs of tachycardia or hypotension. I do not think he is terribly dehydrated at this time. If we are able to get a stool sample, we could consider more aggressive Imodium therapy, provided that test is appropriately negative. <Jocelyn Macedo MD - Last Filed: 09/28/23 23:58> Nine days of diarrhea with recent antibiotic use concerning for C diff or other bacterial superinfection. Differential diagnosis also includes viral gastroenteritis, side effects from medications, nutritional deficiencies, colitis, among others. Differential diagnosis also including dehydration, electrolyte abnormalities due to persistent diarrhea. Will plan to give 1 L of LR, obtain basic labs for lactate, electrolytes, CBC. CRP. Would like a stool sample for culture and also C diff assay. Will be handing over care to incoming day shift partner. No signs of tachycardia or hypotension. I do not think he is terribly dehydrated at this time. If we are able to get a stool sample, we could consider more aggressive Imodium therapy, provided that test is appropriately negative. Patient was signed out to me by Dr. Macedo to follow-up on C diff testing. He was ultimately able to provide a sample, this is negative for C diff but bacterial culture is pending. Patient and his tell me that there cancer doctor had wanted him to hold off on Imodium because of concerns about possible bacterial infection. For now, I recommended maintaining hydration, labs look good here, lactate is normal today and potassium is 3.5. If the stool culture is negative, then it would seem reasonable to me to use Imodium to help symptomatically. He can discuss this further with his cancer doctor if he would like. He is understandably somewhat tearful today, he says that the his outlook medically is poor, and this is difficult for him. His also says that he anticipated rebounding from surgery very quickly, and it is taking longer than he would have liked. All of these feelings certainly understandable, have encouraged him to just be patient with his recovery postoperatively. Workup today is reassuring. <Jodie Penny MD - Last Filed: 09/26/23 11:12> Vital Signs Vital signs: Initial Vital Signs Temperature 98.0 F 09/26/23 06:52 Temperature Source Temporal Artery Scan 09/26/23 06:52 Pulse Rate 65 09/26/23 06:52 Respiratory Rate 18 09/26/23 06:52 Blood Pressure 153/78 H 09/26/23 06:52 Blood Pressure Mean 103 09/26/23 06:52 Blood Pressure Position Sitting 09/26/23 06:52 Pulse Oximetry 97 09/26/23 06:52 Oxygen Delivery Method Room Air 09/26/23 06:52 Vital Signs Temperature 98.0 F 09/26/23 06:52 Pulse Rate 65 09/26/23 06:52 Respiratory Rate 18 09/26/23 06:52 Blood Pressure 153/78 H 09/26/23 06:52 Pulse Oximetry 97 09/26/23 06:52 Oxygen Delivery Method Room Air 09/26/23 06:52 Temperature 98.0 F 09/26/23 06:52 Pulse Rate 72 09/26/23 11:24 Respiratory Rate 18 09/26/23 11:24 Blood Pressure 148/72 H 09/26/23 11:24 Pulse Oximetry 97 09/26/23 06:52 Oxygen Delivery Method Room Air 09/26/23 06:52 <Jocelyn Macedo MD - Last Filed: 09/28/23 23:58> Initial Vital Signs Temperature 98.0 F 09/26/23 06:52 Temperature Source Temporal Artery Scan 09/26/23 06:52 Pulse Rate 65 09/26/23 06:52 Respiratory Rate 18 09/26/23 06:52 Blood Pressure 153/78 H 09/26/23 06:52 Blood Pressure Mean 103 09/26/23 06:52 Blood Pressure Position Sitting 09/26/23 06:52 Pulse Oximetry 97 09/26/23 06:52 Oxygen Delivery Method Room Air 09/26/23 06:52 Vital Signs Temperature 98.0 F 09/26/23 06:52 Pulse Rate 65 09/26/23 06:52 Respiratory Rate 18 09/26/23 06:52 Blood Pressure 153/78 H 09/26/23 06:52 Pulse Oximetry 97 09/26/23 06:52 Oxygen Delivery Method Room Air 09/26/23 06:52 Temperature 98.0 F 09/26/23 06:52 Pulse Rate 72 09/26/23 11:24 Respiratory Rate 18 09/26/23 11:24 Blood Pressure 148/72 H 09/26/23 11:24 Pulse Oximetry 97 09/26/23 06:52 Oxygen Delivery Method Room Air 09/26/23 06:52 <Jodie Penny MD - Last Filed: 09/26/23 11:12> Medications Administered Medications: Discontinued Medications Generic Name Dose Route Start Last Admin Trade Name Freq PRN Reason Stop Dose Admin Lactated Ringer's 1,000 mls @ 1,000 mls/hr 09/26/23 07:19 09/26/23 09:51 Lactated Ringers 1000 Ml IV 09/26/23 08:18 Infused .Q1H ONE Infusion <Jocelyn Macedo MD - Last Filed: 09/28/23 23:58> Discontinued Medications Generic Name Dose Route Start Last Admin Trade Name Freq PRN Reason Stop Dose Admin Lactated Ringer's 1,000 mls @ 1,000 mls/hr 09/26/23 07:19 09/26/23 09:51 Lactated Ringers 1000 Ml IV 09/26/23 08:18 Infused .Q1H ONE Infusion <Jodie Penny MD - Last Filed: 09/26/23 11:12> Medical Decision Making Lab Data Lab results reviewed: Yes I reviewed the patient's lab results <Jocelyn Macedo MD - Last Filed: 09/28/23 23:58> Labs: Lab Results 09/26/23 09/26/23 09/26/23 Range/Units 07:30 10:00 11:14 WBC 6.08 (4.50-11.00) K/uL RBC 3.58 L (4.30-5.90) m/uL Hgb 10.4 L (13.5-17.5) gm/dL Hct 31.9 L (37.0-53.0) % MCV 89 (80-100) fL MCH 29 (26-34) pg MCHC 33 (32-36) gm/dL RDW Coeff of Tammy 13.4 (11.5-15.5) % Plt Count 256 (140-440) K/uL Neut % (Auto) 72.1 H (42.0-72.0) % Lymph % (Auto) 17.6 L (20-44) % [place] % (Auto) 8.9 (0.0-11.0) % Eos % (Auto) 1.0 (0.0-7.0) % Baso % (Auto) 0.2 (0.0-3.0) % Neut # (Auto) 4.40 (1.7-7.0) K/uL Lymph # (Auto) 1.10 (0.90-2.90) K/uL [place] # (Auto) 0.50 (0.00-0.90) K/UL Eos # (Auto) 0.06 (0.00-0.50) K/uL Baso # (Auto) 0.01 (0.00-0.30) K/uL Abs Immat Gran (auto) 0.01 (0.00-0.30) K/uL Imm/Tot Granulo (auto) 0.2 % Sodium 136 (135-149) mmol/L Potassium 3.5 L (3.6-5.1) mmol/L Chloride 106 (96-114) mmol/L Carbon Dioxide 20 (20-32) mmol/L Anion Gap 10 (7-15) mEq/L BUN 22 (7-30) mg/dL Creatinine 0.9 (0.5-1.5) mg/dL Estimated Creat Clear 75.11 Estimated GFR 89 ml/min Glucose 113 (60-115) mg/dL Lactate 1.2 (0.5-1.9) mmol/L Calcium 9.1 (8.4-10.6) mg/dL C-Reactive Protein 2.4 H (0.5-1.0) mg/dL Urine Color Yellow (Yellow) Urine Appearance Clear (Clear) Urine pH 6.5 (5.0-8.5) Ur Specific Isabel 1.020 (1.000-1.030) Urine Protein Negative (Negative) Urine Glucose (UA) Negative (Negative) Urine Ketones Negative (Negative) Urine Blood Negative (Negative) Urine Nitrite Negative (Negative) Urine Bilirubin Negative (Negative) Urine Urobilinogen 0.2 (0.2-1.0) Ur Leukocyte Esterase Negative (Negative) Stl C. diff Tox B Gene Negative (Negative) Stl C. diff 027-NAP1-BI PRESUMPTIVE NEGATIVE (Negative) <Jocelyn Macedo MD - Last Filed: 09/28/23 23:58> Lab Results 09/26/23 09/26/23 09/26/23 Range/Units 07:30 10:00 11:14 WBC 6.08 (4.50-11.00) K/uL RBC 3.58 L (4.30-5.90) m/uL Hgb 10.4 L (13.5-17.5) gm/dL Hct 31.9 L (37.0-53.0) % MCV 89 (80-100) fL MCH 29 (26-34) pg MCHC 33 (32-36) gm/dL RDW Coeff of Tammy 13.4 (11.5-15.5) % Plt Count 256 (140-440) K/uL Neut % (Auto) 72.1 H (42.0-72.0) % Lymph % (Auto) 17.6 L (20-44) % [place] % (Auto) 8.9 (0.0-11.0) % Eos % (Auto) 1.0 (0.0-7.0) % Baso % (Auto) 0.2 (0.0-3.0) % Neut # (Auto) 4.40 (1.7-7.0) K/uL Lymph # (Auto) 1.10 (0.90-2.90) K/uL [place] # (Auto) 0.50 (0.00-0.90) K/UL Eos # (Auto) 0.06 (0.00-0.50) K/uL Baso # (Auto) 0.01 (0.00-0.30) K/uL Abs Immat Gran (auto) 0.01 (0.00-0.30) K/uL Imm/Tot Granulo (auto) 0.2 % Sodium 136 (135-149) mmol/L Potassium 3.5 L (3.6-5.1) mmol/L Chloride 106 (96-114) mmol/L Carbon Dioxide 20 (20-32) mmol/L Anion Gap 10 (7-15) mEq/L BUN 22 (7-30) mg/dL Creatinine 0.9 (0.5-1.5) mg/dL Estimated Creat Clear 75.11 Estimated GFR 89 ml/min Glucose 113 (60-115) mg/dL Lactate 1.2 (0.5-1.9) mmol/L Calcium 9.1 (8.4-10.6) mg/dL C-Reactive Protein 2.4 H (0.5-1.0) mg/dL Urine Color Yellow (Yellow) Urine Appearance Clear (Clear) Urine pH 6.5 (5.0-8.5) Ur Specific Isabel 1.020 (1.000-1.030) Urine Protein Negative (Negative) Urine Glucose (UA) Negative (Negative) Urine Ketones Negative (Negative) Urine Blood Negative (Negative) Urine Nitrite Negative (Negative) Urine Bilirubin Negative (Negative) Urine Urobilinogen 0.2 (0.2-1.0) Ur Leukocyte Esterase Negative (Negative) Stl C. diff Tox B Gene Negative (Negative) Stl C. diff 027-NAP1-BI PRESUMPTIVE NEGATIVE (Negative) <Jodie Penny MD - Last Filed: 09/26/23 11:12> Discharge Plan Discharge Clinical Impression: Sarcoma, Diarrhea <Jocelyn Macedo MD - Last Filed: 09/28/23 23:58> Patient Disposition: Home, Self-Care <Jocelyn Macedo MD - Last Filed: 09/28/23 23:58> Condition: Stable <Jocelyn Macedo MD - Last Filed: 09/28/23 23:58> Instructions: Acute Diarrhea (ED) <Jocelyn Macedo MD - Last Filed: 09/28/23 23:58> Additional Instructions: Your C diff test is negative. We have sent a stool culture as well, this will take a couple of days to return. Until that is back, make sure you are keeping up on hydration, keep diet relatively bland, consider probiotic. If the stool culture is also negative, then I think it would be reasonable to use Imodium per package directions. You can discuss this further with your cancer doctor if you would like. For significant belly pain, fevers, bloody stools, return any time to the emergency department. <Jocelyn Macedo MD - Last Filed: 09/28/23 23:58> Prescriptions: No Action metformin 500 mg tablet extended release 24 hr 1,000 mg PO BID Qty: 360 3RF ascorbic acid (vitamin C) [Vitamin C] 1,000 mg tablet 1 g PO QDAY (DME) Accu-Chek Guide test strips Strip See Rx Instructions .Route Rx Instructions: Use to check blood glucose daily (DME) lancets [Accu-Chek Softclix Lancets] Misc See Rx Instructions .ROUTE .MEDSUPPLY Qty: 100 Patient Comments: [NO ORIGINAL SIG] Rx Instructions: As directed enoxaparin 40 mg/0.4 mL syringe subcut cholecalciferol (vitamin D3) 25 mcg (1,000 unit) capsule 25 mcg PO QDAY mecobalamin (vitamin B12) 1,000 mcg tablet,chewable 1,000 mcg PO QDAY finasteride 5 mg tablet 5 mg PO QDAY acetaminophen 500 mg tablet 1,000 mg PO TID PRN Patient Comments: right hip pain aspirin 325 mg tablet 325 mg PO QDAY tramadol 50 mg tablet 50 mg PO Q6H PRN (Reason: pain) Qty: 30 0RF pembrolizumab IV Q3W Rx Instructions: [id number] tamsulosin 0.4 mg capsule 0.4 mg PO QDAY Qty: 90 3RF (DME) blood-glucose meter [Accu-Chek Guide Glucose Meter] Misc See Rx Instructions .Route Qty: 1 0RF Rx Instructions: As directed atorvastatin 20 mg tablet 20 mg PO QPM Qty: 90 1RF [id number] 1,000mcg-680mcg DFE-1.5 mg tablet,chewable 1 tab PO QDAY valsartan 160 mg tablet 160 mg PO QDAY chlorthalidone 25 mg tablet 25 mg PO QDAY Qty: 90 0RF Hold Instructions: hold <Jocelyn Macedo MD - Last Filed: 09/28/23 23:58> Follow Up/Referrals: Edmund Gar MD [Primary Care Provider] - <Jocelyn Macedo MD - Last Filed: 09/28/23 23:58> Stand Alone Forms: My[facility] Info Instructions <Jocelyn Macedo MD - Last Filed: 09/28/23 23:58>
[2023-09-26 07:39] LABS: Lactate* 1.2 mmol/L (0.5-1.9)
[2023-09-26] MEDS: LACTATED RINGERS 1000 ML 1,000 ML IV (07:39)
[2023-09-26 07:42] LABS: Basophils Absolute Auto 0.01 K/uL (0.00-0.30); Basophils Percent Auto 0.2 % (0.0-3.0); Eosinophils Absolute Auto 0.06 K/uL (0.00-0.50); Hematocrit 31.9 % (37.0-53.0); Hemoglobin* 10.4 gm/dL (13.5-17.5); Immature Granulocytes Abs Auto 0.01 K/uL (0.00-0.30); Immature Granulocytes Pct Auto 0.2 %; Lymphocytes Percent Auto 17.6 % (20-44); Mean Corpuscular HGB Conc 33 gm/dL (32-36); Mean Corpuscular Hemoglobin 29 pg (26-34); Mean Corpuscular Volume 89 fL (80-100); Monocytes Percent Auto 8.9 % (0.0-11.0); Neutrophils Percent Auto 72.1 % (42.0-72.0); Platelet Count* 256 K/uL (140-440); RDW Coefficient of Variation % 13.4 % (11.5-15.5); Red Blood Count 3.58 m/uL (4.30-5.90); White Blood Count* 6.08 K/uL (4.50-11.00)
[2023-09-26 07:47] LABS: Slide Review Reflex No
[2023-09-26 07:53] LABS: Chloride* 106 mmol/L (96-114); Sodium* 136 mmol/L (135-149)
[2023-09-26 07:54] LABS: Potassium* 3.5 mmol/L (3.6-5.1)
[2023-09-26 07:57] LABS: Anion Gap 10 mEq/L (7-15); Blood Urea Nitrogen* 22 mg/dL (7-30); Calcium* 9.1 mg/dL (8.4-10.6); Carbon Dioxide* 20 mmol/L (20-32); Creatinine* 0.9 mg/dL (0.5-1.5); Est. Creatinine Clearance* 75.11; Estimated Glomerular Filt Rate 89 ml/min; Glucose* 113 mg/dL (60-115)
[2023-09-26 08:00] LABS: C Reactive Protein* 2.4 mg/dL (0.5-1.0)
[2023-09-26 11:01] LABS: C.Difficile Negative (Negative); CDIFFEPI 027 PRESUMPTIVE NEGATIVE (Negative)
[2023-09-26 11:23] LABS: Appearance Urine Clear (Clear); Bilirubin Urine Negative (Negative); Blood Urine Negative (Negative); Color Urine Yellow (Yellow); Glucose Urine Negative (Negative); Ketones Urine Negative (Negative); Leukocyte Esterase Urine Negative (Negative); Nitrite Urine Negative (Negative); Protein Urine Negative (Negative); Urobilinogen Urine 0.2 (0.2-1.0); pH Urine 6.5 (5.0-8.5)
[2023-09-26 11:24] VITALS: BP 148/72; PULSE 72; RESP 18
== END 2023-09-26 11:25 | disposition home or self-care (01) ==
PROVIDERS: Emergency Provider Family Medicine; PCP Family Medicine
DX: C49.9 Malignant neoplasm of connective and soft tissue, unspecified (principal); R19.7 Diarrhea, unspecified
CPT/HCPCS: 36415; 80048; 81003; 83605; 85025; 86140; 87045; 87046; 87427; 87493; 99283; 99284; J7120

== ENCOUNTER 2023-10-04 10:30 | Outpatient (RCR) | payer OTHER, SELFPAY | END 2023-12-17 12:21 | disposition home or self-care (01) | PROVIDERS: PCP Family Medicine; Visit Provider Orthopaedic Surgery | DX: C49.9 Malignant neoplasm of connective and soft tissue, unspecified (principal); Z74.09 Other reduced mobility; R26.9 Unspecified abnormalities of gait and mobility; R26.81 Unsteadiness on feet; R29.898 Other symptoms and signs involving the musculoskeletal system; Z51.89 Encounter for other specified aftercare | CPT/HCPCS: 97110; 97162; 97530 ==

== ENCOUNTER 2023-10-06 17:42 | Emergency (ER) | payer OTHER, SELFPAY ==
[2023-10-06 17:51] VITALS: BP 177/87; PULSE 86; RESP 16; TEMP 36.7; O2SAT 98; BMI 34.4
--- NOTE | 2023-10-06 18:29 | CT_ITS ---
Patient: DEVANTE MURILLO Facility:?[facility] Patient ID:?[id number] Site Patient ID:?[id number]. Site :?[id number] Study:?CT-Chest W/O-10/06/2023 6:53:35 PM Ordering Physician:LUIS Final Report: INDICATION: Left flank pain. History of sarcoma. TECHNIQUE: Multiplanar CT examination of the chest was performed after without the use of intravenous contrast. COMPARISON: None. FINDINGS: Lower neck: The visualized thyroid is unremarkable. Cardiovascular: Heart size is normal. Thoracic aorta and pulmonary artery are normal in caliber. Mild atherosclerotic calcifications of the aortic arch dense coronary arterial calcifications. Mediastinum and lymph nodes: There is a large 4.7 x 6.7 cm left paramediastinal soft tissue attenuating mass. Lungs: There are innumerable pulmonary masses, the largest measures approximately 3.9 x 3.5 cm abutting the left major fissure. No definite focal consolidation. Linear bandlike opacification of the lung bases bilaterally, likely subsegmental atelectasis and/or scarring. There may be subtle irregularly nodular interlobular septal thickening involving the left lower lobe. Airways: Patent and midline. Mild diffuse peribronchial wall thickening. Pleura: Small left pleural effusion. No right-sided pleural effusion. No pneumothorax. Chest wall: Unremarkable. Prominent axillary lymph nodes that do not meet size criteria for lymphadenopathy. Bones: No acute osseous abnormalities. Mild degenerative changes of the thoracic spine. No suspicious lytic or blastic lesions identified. Probable intraosseous hemangioma within the T8 vertebral body. Partially visualized ACDF of the lower cervical spine. Upper abdomen: Cholecystectomy. Splenic hypodensities, poorly characterized on this noncontrast nondedicated examination. IMPRESSION: 1. 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 2. 6.7 cm left paramediastinal soft tissue mass, concerning for a metastatic deposit. 3. Small left-sided pleural effusion, raises the possibility of a malignant effusion. Questionable interlobular septal thickening of the left lower lobe, raising the possibility of lymphangitic carcinomatosis. Please note that all CT scans at this facility use dose modulation, iterative reconstruction, and/or weight-based dosing when appropriate to reduce radiation dose to as low as reasonably achievable. Dictated by Augusto Islas MD @ 10/06/2023 8:17:02 PM ----- ADDENDUM ----- Comparison with prior CT or PET-CT imaging when available would be beneficial for further evaluation. Additional impression point: Subcentimeter hypodensities within the spleen are incompletely characterized on this noncontrast examination. Dictated by Augusto Islas MD @ Oct 06 2023 8:17PM ----- ADDENDUM ----- Findings communicated with Dr. Powell at 2020 PM on 10/06/2023. Dictated by Augusto Islas MD @ Oct 06 2023 8:22PM Signed by:?Augusto Islas MD @10/06/2023 8:17:02 PM (Electronic Signature)
--- NOTE | 2023-10-06 18:34 | ED_ITS ---
HPI - General Adult General Chief complaint: Flank Pain Stated complaint: L side back pain Time Seen by Provider: 10/06/23 17:48 History of Present Illness HPI narrative: This 78-year-old male went to urgent care and was sent here because of left flank pain and report of tachypnea. There was no workup done at urgent care. The patient arrives here with normal vital signs and no signs of tachypnea. He does have distinct new onset of pain in the left flank region that is reproducible when lightly palpating this area. He does not report any injury event. He states that the pain is worse with twisting and moving of his trunk. It is also worse with a deep breath. 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 He has been battling an infection that will not heal in this area and has recently been on antibiotic treatment. He has a wound VAC in place. The sarcoma spread into the lymph nodes in his left upper leg and now recent CT scan and PET scan of show own findings of sarcoma in his lungs. He is regularly in touch with oncology at the [facility] and had a scan just last week. There is a consideration of chemotherapy. He states that he has been told that this aggressive form of soft tissue sarcoma may give him about a year yet to live. He states that the pain is severe enough for he thinks that he would not be able to sleep tonight without some medication. Related Data Home Medications Medication Instructions Recorded Confirmed cholecalciferol (vitamin D3) 25 25 mcg PO QDAY 01/29/22 09/26/23 mcg (1,000 unit) capsule mecobalamin (vitamin B12) 1,000 1,000 mcg PO QDAY 01/29/22 09/26/23 mcg chewable tablet finasteride 5 mg tablet 5 mg PO QDAY 03/25/22 09/26/23 acetaminophen 500 mg tablet 1,000 mg PO TID PRN 09/08/22 09/26/23 ascorbic acid (vitamin C) 1,000 mg 1 g PO QDAY 02/15/23 09/26/23 tablet (Vitamin C) blood sugar diagnostic (Accu-Chek 04/12/23 09/26/23 Guide test strips) B12 1,000 1 tab PO QDAY 06/01/23 09/26/23 mcg-methyltetrahydrofolate 680 mcg DFE-B6 1.5 mg chew tablet valsartan 160 mg tablet 160 mg PO QDAY 06/01/23 09/26/23 aspirin 325 mg tablet 325 mg PO QDAY 07/01/23 09/26/23 pembrolizumab IV Q3W 09/26/23 enoxaparin 40 mg/0.4 mL mg subcut 09/28/23 09/28/23 subcutaneous syringe Previous Rx's Medication Instructions Recorded metformin 500 mg tablet,extended 1,000 mg (2 x 500 mg) PO BID #360 12/21/22 release 24 hr tabs tamsulosin 0.4 mg capsule 0.4 mg PO QDAY #90 caps 02/03/23 blood-glucose meter (Accu-Chek #1 ea 03/30/23 Guide Glucose Meter) atorvastatin 20 mg tablet 20 mg PO QPM #90 tabs 04/13/23 chlorthalidone 25 mg tablet 25 mg PO QDAY #90 tabs 08/27/23 tramadol 50 mg tablet 50 mg PO Q6H PRN pain #30 tabs 09/06/23 lancets (Accu-Chek Softclix #100 ea 10/04/23 Lancets) oxycodone 5 mg capsule 5 mg PO Q6H PRN pain #30 caps 10/06/23 Allergies Allergy/AdvReac Type Severity Reaction Status Date / Time cat dander Allergy Intermediate Unknown Verified 10/06/23 17:55 Review of Systems Status of ROS: Reports: 10 or more systems reviewed and unremarkable except as noted in History and below Narrative: Constitutional: No fevers, no weight gain or loss. Eyes: No discharge. No vision changes. HENT: No congestion, no sore throat, no ear pain. Cardiovascular: No chest pain, no palpitations. Respiratory: No shortness of breath, no wheezes, no cough. Gastrointestinal: No abdominal pain, no vomiting, no diarrhea. Genitourinary: No dysuria, no hematuria. Musculoskeletal: Left flank pain that is reproduced with twisting movement and when taking a deep breath. Skin: No rashes, no pruritis. Neurological: No dizziness, weakness, sensory change, speech change. Endo/Heme/Allergies: No bruising or bleeding. No polydipsia. Pysch: no suicidality, no anxiety, no insomnia. All other systems reviewed and are negative. [facility] Medical History (Updated 10/06/23 @ 20:00 by Leonel Fermin MD) Chronic back pain ?M54.9 - Dorsalgia, unspecified (ICD-10) ?G89.29 - Other chronic pain (ICD-10) Multiple lipomas ?D17.9 - Benign lipomatous neoplasm, unspecified (ICD-10) Diarrhea ?R19.7 - Diarrhea, unspecified (ICD-10) Retinal hemorrhage of right eye (01/19/22) ?H35.61 - Retinal hemorrhage, right eye (ICD-10) Health care directive on file ?Z78.9 - Other specified health status (ICD-10) Type 2 diabetes mellitus, without long-term current use of insulin ?E11.9 - Type 2 diabetes mellitus without complications (ICD-10) Mixed hyperlipidemia ?E78.2 - Mixed hyperlipidemia (ICD-10) Primary hypertension ?I10 - Essential (primary) hypertension (ICD-10) Sarcoma of left lower extremity (01/2023) ?C49.22 - Malignant neoplasm of connective and soft tissue of left lower limb, including hip (ICD-10) Normocytic anemia ?D64.9 - Anemia, unspecified (ICD-10) 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) ?J68.3 - Other acute and subacute respiratory conditions due to chemicals, gases, fumes and vapors (ICD-10) BPH (benign prostatic hyperplasia) ?N40.0 - Benign prostatic hyperplasia without lower urinary tract symptoms (ICD-10) Tear of meniscus of right knee (04/19/02) ?S83.206A - Unspecified tear of unspecified meniscus, current injury, right knee, initial encounter (ICD-10) Rheumatoid arthritis ?M06.9 - Rheumatoid arthritis, unspecified (ICD-10) History of occlusion of branch retinal artery ?Z86.69 - Personal history of other diseases of the nervous system and sense organs (ICD-10) 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) ?Z86.69 - Personal history of other diseases of the nervous system and sense organs (ICD-10) Allergic rhinitis ?J30.9 - Allergic rhinitis, unspecified (ICD-10) Surgical History (Updated 10/01/23 @ 10:42 by Jaycee Sin) History of excision of mass ?Z98.890 - Other specified postprocedural states (ICD-10) Cerebral aneurysm (2008) ?I67.1 - Cerebral aneurysm, nonruptured (ICD-10) Status post tonsillectomy and adenoidectomy (1954) ?Z90.89 - Acquired absence of other organs (ICD-10) Status post epidural steroid injection ?Z92.241 - Personal history of systemic steroid therapy (ICD-10) Status post debridement of bone spur (08/22/09) ?Z98.890 - Other specified postprocedural states (ICD-10) Status post cholecystectomy (1995) ?Z90.49 - Acquired absence of other specified parts of digestive tract (ICD- 10) Status post cervical spinal arthrodesis (02/12/17) ?Z98.1 - Arthrodesis status (ICD-10) History of surgery on left wrist ?Z98.890 - Other specified postprocedural states (ICD-10) History of prostate surgery (2017) ?Z98.890 - Other specified postprocedural states (ICD-10) History of bilateral cataract extraction (2014) ?Z98.41 - Cataract extraction status, right eye (ICD-10) ?Z98.42 - Cataract extraction status, left eye (ICD-10) Family History Father Stroke 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: , 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, 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, 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 What is your current living situation?: I presently have a place to live In the past 12 months, utilities in danger of being shut off: no In past 12 months, lack of transportation kept you from medical appts, meetings, work, or getting things needed for daily living: no In the past 12 mos, have been you worried that your food would run out before you had money to buy more?: never true In the past 12 mos, the food you bought just didn't last and you didn't have money to buy more?: never true Smoking Status: Never smoker Do you use any of these nicotine containing products: None Second hand tobacco smoke exposure: No How often do you have a drink containing alcohol: 2-4 times a month AUDIT-C Alcohol total score: 2 Non-prescribed substance use: denies use How often does anyone, including family, friends and others, physically hurt you : never How often does anyone, including family, friends and others, insult or talk down to you: never How often does anyone, including family, friends and others, threaten you with harm: never How often does anyone, including family, friends and others, scream or curse at you: never Little interest or pleasure in doing things: not at all Feeling down, depressed, or hopeless: not at all service: No Exam Narrative: Exam Narrative: Constitutional: Well-developed, well-nourished. HEENT: Normocephalic, atraumatic. Neck: Normal range of motion. Nontender. Supple. Heart: Regular. No murmurs. Normal rate. Intact distal pulses. Lungs: Clear to auscultation. No wheezes, rhonchi, or rales. Chest wall: Distinct pain in the left lateral lower ribs reproduced with palpation, certain movements, and deeper breathing. Abdomen: Normal bowel sounds. Nontender. No rebound tenderness. Genitalia: Deferred. Back: No midline tenderness. Normal range of motion. Extremities: His left lower extremity is in a walking boot. Skin: Intact. No rash. Warm. No erythema or pallor. Neurologic: No altered sensation. No weakness. Alert and oriented. Psychiatric: No suicidality. No anxiety or depression. No insomnia. Nursing notes and vitals signs are reviewed. Const: Vital Signs, click to edit/add: Vital Signs - 24 hr 10/06/23 17:51 Temperature 98.0 F Pulse Rate [Right Pulse Oximeter] 86 Respiratory Rate 16 Blood Pressure [Ri ght Upper Arm] 177/87 H Pulse Oximetry 98 Oxygen Delivery Me thod Room Air Course Vital Signs Vital signs: Initial Vital Signs Temperature 98.0 F 10/06/23 17:51 Temperature Source Temporal Artery Scan 10/06/23 17:51 Pulse Rate 86 10/06/23 17:51 Pulse Rhythm Regular 10/06/23 17:51 Pulse Strength 3+ Normal 10/06/23 17:51 Respiratory Rate 16 10/06/23 17:51 Blood Pressure 177/87 H 10/06/23 17:51 Blood Pressure Mean 117 H 10/06/23 17:51 Blood Pressure Position Sitting 10/06/23 17:51 Pulse Oximetry 98 10/06/23 17:51 Oxygen Delivery Method Room Air 10/06/23 17:51 Vital Signs Temperature 98.0 F 10/06/23 17:51 Pulse Rate 86 10/06/23 17:51 Respiratory Rate 16 10/06/23 17:51 Blood Pressure 177/87 H 10/06/23 17:51 Pulse Oximetry 98 10/06/23 17:51 Oxygen Delivery Method Room Air 10/06/23 17:51 Temperature 98.0 F 10/06/23 17:51 Pulse Rate 86 10/06/23 17:51 Respiratory Rate 16 10/06/23 17:51 Blood Pressure 177/87 H 10/06/23 17:51 Pulse Oximetry 98 10/06/23 17:51 Oxygen Delivery Method Room Air 10/06/23 17:51 Medications Administered Medications: Discontinued Medications Generic Name Dose Route Start Last Admin Trade Name Freq PRN Reason Stop Dose Admin Morphine Sulfate 10 mg 10/06/23 18:29 10/06/23 18:53 Morphine 10 Mg/Ml Inj IM 10/06/23 18:30 10 mg ONCE ONE Administration Medical Decision Making [facility] Narrative Medical decision making narrative: This patient comes in with severe pain in his left flank region. This pain is reproducible with certain movement and when palpating in this area. This came on today. There was no injury event or strenuous activity to bring about. He does have history of soft tissue sarcoma and it has spread to his lungs. He is working with oncologist and orthopedic physicians regarding these conditions. I did obtain a CT scan of his chest which shows numerous sarcomatous tumors. Some of these are connected to the pleura in the left flank region where he is having pain. This seems to me to be the most likely cause of his pain. Radiology report is pending. The patient did receive an intramuscular injection of morphine. I did prescribe oxycodone for ongoing pain relief and advised him to follow-up with his oncologist as soon as possible. Discharge Plan Discharge Clinical Impression: Rib pain on left side, Sarcoma Patient Disposition: Home w/ Parent or Adult Condition: Stable Additional Instructions: Take medication as needed and directed. Follow up with Oncology as soon as possible. Return if worsening. Prescriptions: New oxycodone 5 mg capsule 5 mg PO Q6H PRN (Reason: pain) Qty: 30 0RF No Action metformin 500 mg tablet extended release 24 hr 1,000 mg PO BID Qty: 360 3RF ascorbic acid (vitamin C) [Vitamin C] 1,000 mg tablet 1 g PO QDAY (DME) Accu-Chek Guide test strips Strip See Rx Instructions .Route Rx Instructions: Use to check blood glucose daily enoxaparin 40 mg/0.4 mL syringe subcut cholecalciferol (vitamin D3) 25 mcg (1,000 unit) capsule 25 mcg PO QDAY mecobalamin (vitamin B12) 1,000 mcg tablet,chewable 1,000 mcg PO QDAY finasteride 5 mg tablet 5 mg PO QDAY acetaminophen 500 mg tablet 1,000 mg PO TID PRN Patient Comments: right hip pain aspirin 325 mg tablet 325 mg PO QDAY tramadol 50 mg tablet 50 mg PO Q6H PRN (Reason: pain) Qty: 30 0RF pembrolizumab IV Q3W Rx Instructions: [id number] tamsulosin 0.4 mg capsule 0.4 mg PO QDAY Qty: 90 3RF (DME) blood-glucose meter [Accu-Chek Guide Glucose Meter] Misc See Rx Instructions .Route Qty: 1 0RF Rx Instructions: As directed atorvastatin 20 mg tablet 20 mg PO QPM Qty: 90 1RF [id number] 1,000mcg-680mcg DFE-1.5 mg tablet,chewable 1 tab PO QDAY valsartan 160 mg tablet 160 mg PO QDAY chlorthalidone 25 mg tablet 25 mg PO QDAY Qty: 90 0RF Hold Instructions: hold (DME) lancets [Accu-Chek Softclix Lancets] Misc See Rx Instructions .ROUTE .MEDSUPPLY Qty: 100 0RF Patient Comments: [NO ORIGINAL SIG] Rx Instructions: As directed Follow Up/Referrals: Edmund Gar MD [Primary Care Provider] - Stand Alone [facility]
[2023-10-06] MEDS: MORPHINE 10 MG/ML inj IM (18:53)
[2023-10-06 19:00] VITALS: O2SAT 95
== END 2023-10-06 20:14 | disposition home or self-care (01) ==
PROVIDERS: Emergency Provider Emergency Medicine Emergency Medical Services; PCP Family Medicine
DX: R07.81 Pleurodynia (principal); C49.9 Malignant neoplasm of connective and soft tissue, unspecified
CPT/HCPCS: 71250; 94761; 96372; 99284; J2270